=== PATIENT | female | born 1945 | race African-American/Black ===

== ENCOUNTER 2017-05-14 22:32 | Inpatient (IN) | payer OTHER, MEDICARE ==
--- NOTE | 2017-05-14 23:08 | PDOC ---
History of Present Illness - General History Source: Patient, Family Exam Limitations: No Limitations - History of Present Illness Initial Comments: 05/15/17 00:34 Patient is a 71 year old female with a significant past medical history of MS, and GERD, who presents to the ED with complaints of left knee and left shoulder pain, s/p fall that occured this morning at 3 am. Patient reports waking up this morning to use the restroom when she slipped and slid out of bed this morning landing on her knees. She reports rolling onto her buttock after being on her knees for several minutes, stating she was unable to get up herself. Patient reports calling paramedics using her life alert around am to assist her in getting up when she was unable to find assistance to be lifted off of the floor. Patient reports falling again this evening at 6pm, after voiding her bowels on her bed, causing her to slid onto the floor while trying to get to the restroom. She reports calling her son to help her off of the floor, prompting her son to bring the patient into the ED for further evaluation. She reports experiencing intermittent episodes of diarrhea. As per patient's daughter and aid, patient was noticeably confused during her episodes of falling. She reports patient was dizzy as well as speaking to individuals who she stated were not there. Patient reports taking laxative medication yesterday afternoon. Denies chest pain, Sob. Denies nausea, vomiting. Denies loss of consciousness, head trauma. Denies dysuria, hematuria.Denies contact with sick individuals, out of state travelling. Denies any other symptoms. Allergies: Codeine, Doxycycline. Penicillin. Social history: Lives with . No smoking. No alcohol. No illicit drugs. Surgical history: Hip replacement s/p 2005 PMD: Dr. Ld Mariscal. <Butch Pastor - Last Filed: 05/15/17 01:42> <Brittney Ignacio - Last Filed: 05/15/17 20:10> - General Chief Complaint: Injury Stated Complaint: FALL INJURY Time Seen by Provider: 05/14/17 22:57 Past History <Butch Pastor - Last Filed: 05/15/17 01:42> - Suicide/Smoking/Psychosocial Hx Smoking History: Never smoked <Brittney Ignacio - Last Filed: 05/15/17 20:10> - Past Medical History Allergies/Adverse Reactions: Allergies Allergy/AdvReac Type Severity Reaction Status Date / Time codeine Allergy Verified 05/14/17 22:48 doxycycline [From Vibramycin] Allergy Verified 05/14/17 22:48 Penicillins Allergy Verified 05/14/17 22:47 Home Medications: Ambulatory Orders Amlodipine Besylate [Norvasc -] 10 mg PO HS 05/15/17 Atorvastatin Ca [Lipitor] 10 mg PO HS 05/15/17 Baclofen 10 mg PO BID 05/15/17 Betaseron 0.3 mg SQ Q2D 05/15/17 Desloratadine/Pseudoephedrine [Clarinex-D 12 Hour Tablet] 5 mg PO BID PRN Furosemide [Lasix] 20 mg PO DAILY 05/15/17 Isosorbide Mononitrate [Isosorbide Mononitrate ER] 60 mg PO DAILY 05/15/17 Latanoprost 0.005% Eye Drops [Xalatan 0.005% Eye Drops -] 1 drop OD HS 05/15/17 Metoprolol Succinate [Toprol Xl] 150 mg PO DAILY 05/15/17 Montelukast Sodium [Singulair] 10 mg PO HS 05/15/17 Nexium 24Hr 40 mg PO DAILY 05/15/17 Review of Systems - Review of Systems Able to Perform ROS?: Yes Comments:: 05/15/17 00:34 GENERAL/CONSTITUTIONAL: No fever or chills. No weakness. HEAD, EYES, EARS, NOSE AND THROAT: No change in vision. No ear pain or discharge. No sore throat. CARDIOVASCULAR: No chest pain or shortness of breath. RESPIRATORY: No cough, wheezing, or hemoptysis. GASTROINTESTINAL: +Diarrhea. No nausea, vomiting, or constipation. GENITOURINARY: No dysuria, frequency, or change in urination. MUSCULOSKELETAL: +Bilateral hip pain. +Left knee pain. +Left shoulder pain. No joint or muscle swelling or pain. No neck or back pain. SKIN: No rash NEUROLOGIC: No headache, vertigo, loss of consciousness, or change in strength/ sensation. ENDOCRINE: No increased thirst. No abnormal weight change. HEMATOLOGIC/LYMPHATIC: No anemia, easy bleeding, or history of blood clots. ALLERGIC/IMMUNOLOGIC: No hives or skin allergy. <Butch Pastor - Last Filed: 05/15/17 01:42> *Physical Exam - Vital Signs Last Vital Signs Temp Pulse Resp BP Pulse Ox 98.3 F 73 16 158/76 100 05/14/17 22:35 05/14/17 22:35 05/14/17 22:35 05/14/17 22:35 05/14/17 22:35 - Physical Exam Comments: 05/15/17 00:34 GENERAL: Awake, alert, and fully oriented, in no acute distress HEAD: No signs of trauma EYES: PERRLA, EOMI, sclera anicteric, conjunctiva clear ENT: Auricles normal inspection, hearing grossly normal, nares patent, oropharynx clear without exudates. Moist mucosa NECK: Normal ROM, supple, no lymphadenopathy, JVD, or masses LUNGS: Breath sounds equal, clear to auscultation bilaterally. No wheezes, and no crackles HEART: Regular rate and rhythm, normal S1 and S2, no murmurs, rubs or gallops ABDOMEN: +Slightly gassy. Soft, nontender, normoactive bowel sounds. No guarding, no rebound. No masses EXTREMITIES: +Moving upper extremities. +Right hip pain. +Left hip pain. Normal range of motion, no edema. No clubbing or cyanosis. No cords, erythema, or tenderness NEUROLOGICAL: +Answering questions. Cranial nerves II through XII grossly intact. Normal speech, normal gait SKIN: Warm, Dry, normal turgor, no rashes or lesions noted. <Butch Pastor - Last Filed: 05/15/17 01:42> - Vital Signs Last Vital Signs Temp Pulse Resp BP Pulse Ox 98.3 F 73 16 158/76 100 05/14/17 22:35 05/14/17 22:35 05/14/17 22:35 05/14/17 22:35 05/14/17 22:35 <Brittney Ignacio - Last Filed: 05/15/17 20:10> Heart Score/ECG Review - ECG Intrepretation Comment:: 05/15/17 01:42 Completed @0:30:36 Normal Sinus rhythm Normal ECG Vent. rate 84 bpm SD interval 184 ms QRS duration 74 ms <Butch Pastor - Last Filed: 05/15/17 01:42> ED Treatment Course - LABORATORY CBC & Chemistry Diagram: 05/15/17 00:29 05/15/17 00:29 <Butch Pastor - Last Filed: 05/15/17 01:42> - LABORATORY CBC & Chemistry Diagram: 05/15/17 08:05 05/15/17 08:05 <Brittney Ignacio - Last Filed: 05/15/17 20:10> Medical Decision Making - Medical Decision Making 05/15/17 01:31 Pt fell at home 2 x today; she was altered MS at one point in the afternoon. Pt has rhabdomyolysis: CPK is 800+ Pt doesn't know why she fell, if she got dizzy or if she was weak. Pt has low potassium and she will be repleted in the hospital. Pt has had nothing to eat all day, only liquids. 05/15/17 04:23 Patient Name: MICA CANO THIS IS A PRELIMINARY REPORT FROM [facility] DATE OF SERVICE: 2017-05-15 03:17:35 IMAGES: 142 EXAM: HEAD CT WITHOUT CONTRAST HISTORY: Mental status changes COMPARISON: None. FINDINGS: The ventricular system is midline and nondilated. The sulcal pattern is normal for the patient's age. Mild small vessel ischemic changes are noted. There is no bleed, mass, extra-axial fluid collection or mass effect. No skull fracture. Benign hyperostosis frontalis internus is noted. Right maxillary sinus retention cyst or polyp is noted. The other visualized paranasal sinuses and mastoid air cells are clear. IMPRESSION: No evidence of acute pathology. 05/15/17 04:24 Pt admitted for multiple fall and hypokalemia. <Brittney Ignacio - Last Filed: 05/15/17 20:10> *DC/Admit/Observation/Transfer - Attestations Scribe Attestion: 05/15/17 00:35 Documentation prepared by Butch Pastor, acting as medical billing coder for Brittney Ignacio MD/DO. <Butch Pastor - Last Filed: 05/15/17 01:42> - Discharge Dispostion Admit: Yes <Brittney Ignacio - Last Filed: 05/15/17 20:10> Diagnosis at time of Disposition: Multiple falls, Rhabdomyolysis, Hypokalemia, Dehydration - Discharge Dispostion Condition at time of disposition: Guarded
[2017-05-14] MEDS ORDERED: SODIUM CHLORIDE 0.9% 500 ML INFUS.BAG IV ONE (23:51)
[2017-05-15 00:40] LABS: BASO % 0.7 % (0-2.0); EOS % 1.2 % (0-4.5); HEMATOCRIT 37.2 % (32.4-45.2); HEMOGLOBIN 12.5 GM/dL (10.7-15.3); LYMPH % 20.3 % (8-40); MCH 31.9 pg (25.7-33.7); MCHC 33.7 g/dl (32.0-36.0); MEAN CELL VOLUME 94.8 fl (80-96); MEAN PLT VOLUME 8.9 fl (7.5-11.1); MONO % 8.5 % (3.8-10.2); NEUT % 69.3 % (42.8-82.8); PLATELET COUNT 231 K/MM3 (134-434); RBC 3.92 M/mm3 (3.60-5.2); RDW 13.6 % (11.6-15.6); WHITE BLOOD COUNT 9.7 K/mm3 (4.0-10.0)
[2017-05-15 00:55] LABS: INR 1.04 (0.82-1.09); PROTHROMBIN TIME (PATIENT) 11.7 SEC (9.98-11.88)
[2017-05-15] MEDS ORDERED: KETOROLAC TROMETHAMINE 30 MG/1 ML VIAL IVPUSH ONE (01:05)
[2017-05-15] MEDS ORDERED: KETOROLAC TROMETHAMINE 30 MG/1 ML VIAL ONE (01:06)
[2017-05-15 01:23] LABS: ALBUMIN 3.3 g/dl (3.4-5.0); ALK PHOS 82 U/L (45-117); ANION GAP 11 (8-16); BILIRUBIN,TOTAL 0.7 mg/dL (0.2-1.0); BLOOD UREA NITROGEN 25 mg/dL (7-18); CALCIUM 9.2 mg/dL (8.5-10.1); CHLORIDE 109 mmol/L (98-107); CO2 26 mmol/L (21-32); GLUCOSE,RANDOM 80 mg/dL (74-106); SGOT/AST 40 U/L (15-37); SGPT/ALT 27 U/L (12-78); SODIUM 146 mmol/L (136-145); TOT PROT 7.2 g/dl (6.4-8.2)
[2017-05-15] MEDS ORDERED: MAGNESIUM SULF 50% (8.12 MEQ/2 ML-1 GM VIAL) IVPB ONE (01:30)
[2017-05-15] MEDS ORDERED: POTASSIUM CHLORIDE TABS 20 MEQ TABLET.ER (FP) PO ONE (01:31)
[2017-05-15] MEDS ORDERED: ACETAMINOPHEN 1000 MG/100 ML VIAL (NON FORMULARY) IVPB ONE (04:08)
[2017-05-15] MEDS ORDERED: ACETAMINOPHEN INJECTION 100 ML IVPB ONE (04:10)
[2017-05-15] MEDS ORDERED: MAGNESIUM SULF 50% (8.12 MEQ/2 ML-1 GM VIAL) ONE (04:10)
[2017-05-15] MEDS ORDERED: POTASSIUM CHLORIDE ORAL LIQUID 20 MEQ/15 ML ONE (04:11)
[2017-05-15 05:22] LABS: URINE APPEARANCE CLEAR; URINE BILIRUBIN NEGATIVE (NEGATIVE); URINE BLOOD 2+ (NEGATIVE); URINE COLOR LTYELLOW; URINE GLUCOSE (UA) NEGATIVE (NEGATIVE); URINE KETONE TRACE (NEGATIVE); URINE NITRITE NEGATIVE (NEGATIVE); URINE UROBILINOGEN NEGATIVE mg/dL (0.2-1.0)
[2017-05-15 05:26] LABS: URINE LEUK ESTERASE 1+ (NEGATIVE); URINE PROTEIN 2+ (NEGATIVE)
[2017-05-15 05:29] LABS: EPI CELLS RARE /HPF (FEW); URINE BACTERIA RARE /hpf (NONE SEEN); URINE HYALINE CAST 1 /lpf; URINE MUCUS RARE
[2017-05-15 06:07] VITALS: BMI 27.1
[2017-05-15] MEDS ORDERED: ACETAMINOPHEN 325 MG TABLET (FP) PO PRN (06:38)
--- NOTE | 2017-05-15 06:39 | HP ---
CHIEF COMPLAINT: mechanical fall x2, knee and hip pain PCP: Dr. Mariscal HISTORY OF PRESENT ILLNESS: 71yo F with PMH of MS and HTN who presents to ED after falling twice at home with complaints of bilateral knee and hip pain. She reports falling at 2AM Tuesday when getting ice. She fell on her knees. She fell again later in the afternoon, also falling on knees. She denies dizziness, lighthedness or shortness of breath. She endorses subjective warmth and malaise. Denies any chest pain, chest discomfort or palpitations. She received flu shot this year. Denies sick contacts. ER course was notable for: (1) Pelvic CT taken - awaiting results (2) Head CT taken - awaiting results (3) Hypokalemia - repleted with 80mEq (4) Received Mg 2gm IV Recent Travel: none PAST MEDICAL HISTORY: MS HTN GERD PAST SURGICAL HISTORY: R Hip replacement - 2005 Social History: Smoking: quit 2005, 20year pack-year history Alcohol: denies Drugs: denies Family History: non-contributory Allergies: codeine Allergy (Verified 05/14/17 22:48) doxycycline [From Vibramycin] Allergy (Verified 05/14/17 22:48) Penicillins Allergy (Verified 05/14/17 22:47) HOME MEDICATIONS: REVIEW OF SYSTEMS CONSTITUTIONAL: malaise Absent: fever, chills, diaphoresis, generalized weakness, malaise, loss of appetite, weight change HEENT: Absent: rhinorrhea, nasal congestion, throat pain, throat swelling, difficulty swallowing, mouth swelling, ear pain, eye pain, visual changes CARDIOVASCULAR: Absent: chest pain, syncope, palpitations, irregular heart rate, lightheadedness , peripheral edema RESPIRATORY: Absent: cough, shortness of breath, dyspnea with exertion, orthopnea, wheezing, stridor, hemoptysis GASTROINTESTINAL: Absent: abdominal pain, abdominal distension, nausea, vomiting, diarrhea, constipation, melena, hematochezia GENITOURINARY: Absent: dysuria, frequency, urgency, hesitancy, hematuria, flank pain, genital pain MUSCULOSKELETAL: hip and knee pain Absent: myalgia, arthralgia, joint swelling, back pain, neck pain SKIN: Absent: rash, itching, pallor HEMATOLOGIC/IMMUNOLOGIC: Absent: easy bleeding, easy bruising, lymphadenopathy, frequent infections ENDOCRINE: Absent: unexplained weight gain, unexplained weight loss, heat intolerance, cold intolerance NEUROLOGIC: Absent: headache, focal weakness or paresthesias, dizziness, unsteady gait, seizure, mental status changes, bladder or bowel incontinence PSYCHIATRIC: Absent: anxiety, depression, suicidal or homicidal ideation, hallucinations. PHYSICAL EXAMINATION Vital Signs - 24 hr 05/14/17 05/15/17 05/15/17 22:35 05:49 06:02 Temperature 98.3 F 99.0 F Pulse Rate 73 86 Respiratory 16 18 Rate Blood Pressure 158/76 168/70 O2 Sat by Pulse 100 96 Oximetry (%) GENERAL: lying in bed, aaox3 HEENT: PERRL, sceral anicteric, dry mucous membranes NECK: supple, no cervical LAD LUNGS: CTAB HEART: rrr, normal s1/s2, 3/6 ISRAEL ABDOMEN: Soft, NTND, no guarding or rebound MSK: LE ROM limited 2/2 to pain UPPER EXTREMITIES: No peripheral edema. LOWER EXTREMITIES: 2+ DP pulses, 1+ edema NEUROLOGICAL: seo team lead intact. facial symmetry, LE sensation intact, motor strength can not be assessed 2/2 to pain CBC, BMP 05/15/17 00:29 05/15/17 00:29 Hepatic Panel Total Bilirubin 0.7 mg/dL (0.2-1.0) 05/15/17 00:29 AST 40 U/L (15-37) H 05/15/17 00:29 ALT 27 U/L (12-78) 05/15/17 00:29 Alkaline Phosphatase 82 U/L (45-117) 05/15/17 00:29 Albumin 3.3 g/dl (3.4-5.0) L 05/15/17 00:29 Troponin, BNP 05/15/17 00:29 Troponin I 0.05 Urine Test Results Urine Color Ltyellow 05/15/17 05:14 Urine Appearance Clear 05/15/17 05:14 Urine pH 5.0 (5.0-8.0) 05/15/17 05:14 Ur Specific [place] 1.013 (1.001-1.035) 05/15/17 05:14 Urine Protein 2+ (NEGATIVE) H 05/15/17 05:14 Urine Glucose (UA) Negative (NEGATIVE) 05/15/17 05:14 Urine Ketones Trace (NEGATIVE) H 05/15/17 05:14 Urine Blood 2+ (NEGATIVE) H 05/15/17 05:14 Urine Nitrite Negative (NEGATIVE) 05/15/17 05:14 Urine Bilirubin Negative (NEGATIVE) 05/15/17 05:14 Ur Leukocyte Esterase 1+ (NEGATIVE) H 05/15/17 05:14 Ur Epithelial Cells Rare /HPF (FEW) 05/15/17 05:14 Urine Bacteria Rare /hpf (NONE SEEN) 05/15/17 05:14 Urine Mucus Rare 05/15/17 05:14 Active Medications Acetaminophen (Tylenol -) 650 mg PO Q6H PRN PRN Reason: PAIN OR FEVER Furosemide (Lasix -) 20 mg PO DAILY ALBERTO Sodium Chloride (1/2 Normal Saline) 1,000 mls @ 60 mls/hr IV ASDIR ALBERTO Isosorbide Mononitrate (Imdur -) 60 mg PO DAILY ALBERTO Oseltamivir Phosphate (Tamiflu -) 75 mg PO BID ALBERTO Stop: 05/20/17 09:59 ASSESSMENT/PLAN: 71yo F with PMH of MS and multiple mechanical falls at home who p/w bilateral hip and knee pain and found to be dehydrated and hypokalemic. #s/p mechanical fall -f/u head CT: preliminary read, no acute pathology -f/u pelvic CT --> if fracture, consult Ortho #malaise, r/o infectious process -f/u CXR -Flu swab stat -empiric treatment with Tamiflu 75mg PO BID -f/u urine culture #hypokalemia, repleted 80mEq -Monitor, and replete as needed #HTN -c/w home lasix 20mg PO QD -c/w home isosorbide 60mg PO QD #elevated Troponin (0.05), likely demand ischemia, low suspicion for ACS, pt is asx and EKG no signs of ischemia (NSR, rate 84) -Repeat, if no significant change, stop trending #FEN: 1/2NS@60cc / K and Mg repleted / Na controlled #DVT PPX: SCD's #DISPO: M/S d/w Dr. Lilly Sheehan MD PGY1 - Internal Medicine Visit type - Emergency Visit Emergency Visit: Yes ED Registration Date: 05/15/17 Care time: The patient presented to the Emergency Department on the above date and was hospitalized for further evaluation of their emergent condition. - New Patient This patient is new to me today: Yes Date on this admission: 05/15/17 - Critical Care Critical Care patient: No Hospitalist Screening - Colonoscopy Questionnaire Colonoscopy Questionnaire: Colonoscopy Questionnaire - Patient: 50 - 75 years old and never had a screening colonoscopy: Yes History of colon or rectal polyps, or CA: Unknown History of IBD, Crohn's disease or UC: Unknown History of abdominal radiation therapy as a child: Unknown - Relative: 1 with colon or rectal CA, or polyps at age 60 or younger: Unknown Colon or rectal CA diagnosed at age 45 or younger: Unknown Multiple relatives with colon or rectal CA: Unknown - Outcome: Screening Result: Positive Screen
--- NOTE | 2017-05-15 06:41 | PN ---
Teaching Attending Note ATTENDING PHYSICIAN STATEMENT I saw and evaluated the patient. I reviewed the resident's note and discussed the case with the resident. I agree with the resident's findings and plan as documented. SUBJECTIVE: patient presented with malaise and fall x2 that happened yesterday she was also complaining of feeling warm OBJECTIVE: s1 and s2 RRR grade 3 systolic ejection murmur at the 2nd intercostal border lungs CTA no bruises noted on the leg no tenderness on the left side where the patient fell abdomen soft non-tender ASSESSMENT AND PLAN: 75 y/o female admitted s/p trauma patient was noted to be febrile upon exam and dry and hypokalemic plan: malaise and fever r/o influenza obtain swab if positive place patient on isolation start Tamaflu IVF - 60cc/hr hypokalemia give 80 meq of potassium trauma - CT scan of the hip and head wear done to r/o any acute fracture and bleeding if there is hip fracture place patient as admission consult orthopedic surgery
[2017-05-15] MEDS ORDERED: SODIUM CHLORIDE 0.45% 1,000 ML IV SCH ×2 (06:45→07:36)
[2017-05-15 08:46] LABS: BASO % 0.5 % (0-2.0); EOS % 2.1 % (0-4.5); HEMATOCRIT 33.7 % (32.4-45.2); HEMOGLOBIN 11.4 GM/dL (10.7-15.3); LYMPH % 23.9 % (8-40); MCH 31.9 pg (25.7-33.7); MCHC 33.9 g/dl (32.0-36.0); MEAN PLT VOLUME 7.7 fl (7.5-11.1); NEUT % 65.5 % (42.8-82.8); PLATELET COUNT 178 K/MM3 (134-434); RBC 3.59 M/mm3 (3.60-5.2); RDW 13.5 % (11.6-15.6); WHITE BLOOD COUNT 6.6 K/mm3 (4.0-10.0)
--- NOTE | 2017-05-15 08:55 | PN ---
Teaching Attending Note Name of Resident: Sergio Mccormick SUBJECTIVE: patient seen and examined, feels better, confirms both falls at home as mechanical, first time landed on her knees, second time rolled out of bed on her knees than stayed on the floor till help arrived. reports some right groin pain and left knee pain. Also has chronic low back pain with no recent changes. had some chills at home but no fevers, respiratory symptoms, abdominal or urinary concerns. Currently feels better, pain well controlled. OBJECTIVE: Vital Signs Period Temp Pulse Resp BP Sys/Mcnulty Pulse Ox Last 24 Hr 98.3 F-99.0 F 73-86 16-18 158-168/70-76 96-100 Intake & Output 05/12/17 05/13/17 05/14/17 05/15/17 23:59 23:59 23:59 23:59 Weight 150 lb 159 lb 1.6 oz General: lying in bed in no acute distress chest: CTAB, no rales or wheezing CVS:S1S2 regular Abdomen:soft obese, NT, positive bowel sounds extremities: no edema, minimal limitation of Left knee ROM from pain, no obvious swelling or hematoma noted, Right groin pain with RLE movements but minimal limitation in ROM, no groin tenderness, Musculoskeletal: no spinal tenderness noted. Home Medication List Medication Instructions Recorded Confirmed Type Furosemide [Lasix] 20 mg PO DAILY 05/15/17 05/15/17 History Isosorbide Mononitrate [Isosorbide 60 mg PO DAILY 05/15/17 05/15/17 History Mononitrate ER] Active Medications Generic Name Dose Route Start Last Admin Trade Name Freq PRN Reason Stop Dose Admin Acetaminophen 650 mg 05/15/17 06:38 Tylenol - PO Q6H PRN PAIN OR FEVER Isosorbide Mononitrate 60 mg 05/15/17 10:00 Imdur - PO DAILY ALBERTO Oseltamivir Phosphate 75 mg 05/15/17 10:00 Tamiflu - PO 05/20/17 09:59 BID ALBERTO Laboratory Results - last 24 hr 05/15/17 05/15/17 05/15/17 00:29 00:29 00:29 WBC 9.7 RBC 3.92 Hgb 12.5 Hct 37.2 MCV 94.8 MCH 31.9 MCHC 33.7 RDW 13.6 Plt Count 231 MPV 8.9 Neutrophils % 69.3 Lymphocytes % 20.3 Monocytes % 8.5 Eosinophils % 1.2 Basophils % 0.7 Platelet Comment No clumping noted PT with INR 11.70 INR 1.04 Sodium Potassium Chloride Carbon Dioxide Anion Gap BUN Creatinine Creat Clearance w eGFR Random Glucose Calcium Total Bilirubin AST ALT Alkaline Phosphatase Creatine Kinase 830 H Creatine Kinase Index 1.6 CK-MB (CK-2) 13.862 H Troponin I 0.05 Total Protein Albumin Urine Color Urine Appearance Urine pH Ur Specific [place] Urine Protein Urine Glucose (UA) Urine Ketones Urine Blood Urine Nitrite Urine Bilirubin Urine Urobilinogen Ur Leukocyte Esterase Urine WBC (Auto) Urine RBC (Auto) Ur Epithelial Cells Urine Bacteria Hyaline Casts Urine Mucus 05/15/17 05/15/17 05/15/17 00:29 05:14 08:05 WBC 6.6 D RBC 3.59 L Hgb 11.4 Hct 33.7 MCV 94.0 MCH 31.9 MCHC 33.9 RDW 13.5 Plt Count 178 D MPV 7.7 D Neutrophils % 65.5 Lymphocytes % 23.9 Monocytes % 8.0 Eosinophils % 2.1 Basophils % 0.5 Platelet Comment PT with INR INR Sodium 146 H Potassium 3.0 L Chloride 109 H Carbon Dioxide 26 Anion Gap 11 BUN 25 H Creatinine 1.0 Creat Clearance w eGFR 54.50 Random Glucose 80 Calcium 9.2 Total Bilirubin 0.7 AST 40 H ALT 27 Alkaline Phosphatase 82 Creatine Kinase Creatine Kinase Index CK-MB (CK-2) Troponin I Total Protein 7.2 Albumin 3.3 L Urine Color Ltyellow Urine Appearance Clear Urine pH 5.0 Ur Specific [place] 1.013 Urine Protein 2+ H Urine Glucose (UA) Negative Urine Ketones Trace H Urine Blood 2+ H Urine Nitrite Negative Urine Bilirubin Negative Urine Urobilinogen Negative Ur Leukocyte Esterase 1+ H Urine WBC (Auto) 14 Urine RBC (Auto) 2 Ur Epithelial Cells Rare Urine Bacteria Rare Hyaline Casts [address] head - neg for acute process CT pelvis )Night hawk read), no acute fracture or hematoma, right hip replacement ASSESSMENT AND PLAN: 71 yof with MS (since 1970s, with some left arm symptoms), HTN, ?brain aneursym , here with recurrent falls. _recurrent falls -Right groin/left knee pain -Rhabdomyolysis, from lying on floor -Hypokalemia -Hypernatremia -HTN -?brain aneurysm Plan: CT pelvis prelim read neg for fracture, with right hip replacement but no hardware displacement, follow up official read. Left knee xray though low suspicion. Fall precautions, tylenol prn. PT eval. gentle hydration, trend CPK replete K. ?h/o brain aneurysm, hold off pharmacological DVTPPx unless non ambulatory > 4 8 hours. Retrieve more info Continue home Nitrates. Hold lasix for now. Dispo - pending clinical course, and PT eval. ?SNF vs home with services.
[2017-05-15] MEDS ORDERED: SODIUM CHLORIDE 0.45%/POT 20 MEQ/1,000 ML INFUS.BAG IV SCH (09:00)
[2017-05-15 09:13] LABS: ALBUMIN 2.8 g/dl (3.4-5.0); ANION GAP 9 (8-16); BILIRUBIN,TOTAL 0.8 mg/dL (0.2-1.0); BLOOD UREA NITROGEN 19 mg/dL (7-18); CALCIUM 8.7 mg/dL (8.5-10.1); CHLORIDE 112 mmol/L (98-107); CO2 25 mmol/L (21-32); CREATININE 0.8 mg/dL (0.55-1.02); GLUCOSE,RANDOM 70 mg/dL (74-106); POTASSIUM 3.1 mmol/L (3.5-5.1); SGOT/AST 35 U/L (15-37); SGPT/ALT 23 U/L (12-78); SODIUM 146 mmol/L (136-145); TOT PROT 6.3 g/dl (6.4-8.2)
[2017-05-15 09:16] LABS: ALK PHOS 73 U/L (45-117)
[2017-05-15] MEDS ORDERED: FUROSEMIDE 20 MG TABLET (FP) PO SCH (10:00)
[2017-05-15] MEDS: OSELTAMIVIR PHOSPHATE 75 MG CAPSULE PO SCH ×2 (11:41→21:54)
[2017-05-15] MEDS: ISOSORBIDE MONONITRATE 60 MG TAB.SR.24H (FP) PO SCH (11:41)
[2017-05-15] MEDS: POTASSIUM CHLORIDE 20 MEQ in SODIUM CHLORIDE 0.45% 1,000 ML IVPB SCH (13:50)
[2017-05-15] MEDS: POTASSIUM CHLORIDE ORAL LIQUID 20 MEQ/15 ML PO SCH ×2 (14:00→21:55)
[2017-05-15] MEDS: ATORVASTATIN CA 10 MG TABLET (FP) PO SCH (21:54)
[2017-05-15] MEDS: MONTELUKAST NA 10 MG TABLET PO SCH (21:54)
[2017-05-15] MEDS: LATANOPROST 0.005% OPHTH SOLN 2.5ML BOTTLE OD SCH (21:54)
[2017-05-15] MEDS: amLODIPine BESYLATE 10 MG TABLET (FP) PO SCH (21:54)
--- NOTE | 2017-05-15 23:57 | EKG ---
Test Reason : Blood Pressure : / mmHG Vent. Rate : 084 BPM Atrial Rate : 084 BPM P-R Int : 184 ms QRS Dur : 074 ms QT Int : 368 ms P-R-T Axes : 078 010 032 degrees QTc Int : 434 ms POOR DATA QUALITY, INTERPRETATION MAY BE ADVERSELY AFFECTED NORMAL SINUS RHYTHM NORMAL ECG NO PREVIOUS ECGS AVAILABLE Confirmed by VITA COON MD ([id number]) on 05/15/2017 11:57:22 PM Referred By: Confirmed By:VITA COON MD
[2017-05-16] MEDS: POTASSIUM CHLORIDE 20 MEQ in SODIUM CHLORIDE 0.45% 1,000 ML IVPB SCH (05:59)
[2017-05-16 07:26] LABS: CHLORIDE 110 mmol/L (98-107); POTASSIUM 4.5 mmol/L (3.5-5.1); SODIUM 144 mmol/L (136-145)
[2017-05-16 07:52] LABS: ANION GAP 11 (8-16); BLOOD UREA NITROGEN 16 mg/dL (7-18); CALCIUM 8.9 mg/dL (8.5-10.1); CO2 23 mmol/L (21-32); CREATININE 0.8 mg/dL (0.55-1.02); GLUCOSE,RANDOM 84 mg/dL (74-106); MAGNESIUM 2.5 mg/dL (1.8-2.4); PHOSPHOROUS 2.4 mg/dL (2.5-4.9)
[2017-05-16 08:05] LABS: HEMATOCRIT 34.1 % (32.4-45.2); HEMOGLOBIN 11.6 GM/dL (10.7-15.3); MCH 32.3 pg (25.7-33.7); MCHC 33.9 g/dl (32.0-36.0); MEAN CELL VOLUME 95.2 fl (80-96); MEAN PLT VOLUME 7.9 fl (7.5-11.1); PLATELET COUNT 178 K/MM3 (134-434); RBC 3.58 M/mm3 (3.60-5.2); RDW 13.5 % (11.6-15.6); WHITE BLOOD COUNT 7.2 K/mm3 (4.0-10.0)
--- NOTE | 2017-05-16 08:44 | PN ---
Physical Exam: SUBJECTIVE: Patient seen and examined. No events overnight. Continues to have L shoulder pain and bilateral hip pain that is worse with movement. Denies fever, chills, n/v, chest pain, or sob. OBJECTIVE: Vital Signs Period Temp Pulse Resp BP Sys/Mcnulty Pulse Ox Last 24 Hr 97.6 F-99.9 F 89-103 18-20 138-189/73-94 96-97 Intake & Output 05/13/17 05/14/17 05/15/17 05/16/17 23:59 23:59 23:59 23:59 Intake Total 838 1061 Balance 838 1061 Weight 68.039 kg 72.167 kg GENERAL: lying in bed, aaox3, nad HEENT: sclera anicteric, conjunctiva clear, MMM LUNGS: CTAB HEART: rrr, normal s1/s2, 3/6 ISRAEL ABDOMEN: soft, NTND, + bowel sounds, no guarding or rebound LOWER EXTREMITIES: 2+ DP pulses, wwp, no edema NEUROLOGICAL: Cranial nerves II through XII grossly intact. Normal speech, gait not observed. CBC, BMP 05/16/17 05:35 05/16/17 05:35 Ca - 8.9 Phos - 2.4 Mg - 2.5 Hepatic Panel Total Bilirubin 0.8 mg/dL (0.2-1.0) 05/15/17 08:05 AST 35 U/L (15-37) 05/15/17 08:05 ALT 23 U/L (12-78) 05/15/17 08:05 Alkaline Phosphatase 73 U/L (45-117) 05/15/17 08:05 Albumin 2.8 g/dl (3.4-5.0) L 05/15/17 08:05 Microbiology 05/15/17 05:14 Urine - Urine Clean Catch Urine Culture - Final Contaminated: Please Repeat 05/15/17 08:15 Nasopharyngeal Swab Influenza Types A,B Antigen (GALINA) - Final 05/15/17 08:15 Nasopharyngeal Swab - Final CT pelvis/Brain non concerning. Left shoulder with ?posterior dislocation of humeral head, unclear if new, orthopedic consult with Dr. Clarke, NWB LUE till then. Place on standing tylenol. PT eval pending ortho input. CPK improved. D/c IVF. ?h/o brain aneurysm, hold off pharmacological DVTPPx unless non ambulatory > 48 hours. Retrieve more info as needed. Continue home Nitrates. Hold lasix for now. Dispo - pending corthopedic input and PT eval, anticipate SNF. Plan discussed with patient in detail, all questions answered. Active Medications Acetaminophen (Tylenol -) 975 mg PO TID [facility] Last Admin: 05/16/17 22:06 Dose: 975 mg Amlodipine Besylate (Norvasc -) 10 mg PO HS [facility] Last Admin: 05/16/17 22:06 Dose: 10 mg Atorvastatin Calcium (Lipitor -) 10 mg PO HS [facility] Last Admin: 05/16/17 22:06 Dose: 10 mg Isosorbide Mononitrate (Imdur -) 60 mg PO DAILY [facility] Last Admin: 05/16/17 10:24 Dose: 60 mg Latanoprost (Xalatan 0.005% Eye Drops -) 1 drop OD [facility] Last Admin: 05/16/17 22:07 Dose: 1 drop Metoprolol Succinate (Toprol Xl -) 150 mg PO DAILY [facility] Last Admin: 05/16/17 10:24 Dose: 150 mg Montelukast Sodium (Singulair -) 10 mg PO HS [facility] Last Admin: 05/16/17 22:06 Dose: 10 mg Pnt's Own Med ( (Betaseron 0.3 Mg)) 0.3 mg SQ Q2D [facility] Pantoprazole Sodium (Protonix -) 40 mg PO DAILY [facility] Last Admin: 05/16/17 10:23 Dose: 40 mg ASSESSMENT/PLAN: 71yo F with PMH of MS, cerebral AVMs (stable per PCP Dr. Mariscal) and multiple mechanical falls at home who p/w bilateral hip and knee pain and found to be dehydrated and hypokalemic. #s/p mechanical fall -head and pelvis CT: no acute pathology, non-concerning -L shoulder xray --> possible posterior dislocation, will consult Ortho (Dr. Clarke) #malaise, r/o infectious process -f/u CXR -Flu swab - -empiric treatment with Tamiflu 75mg PO BID -f/u urine culture #hypokalemia, repleted 80mEq, resolved #HTN -Hod lasix 20mg PO QD -c/w home isosorbide 60mg PO QD #elevated Troponin (0.05), likely demand ischemia, low suspicion for ACS, pt is asx and EKG no signs of ischemia (NSR, rate 84) -Repeat, if no significant change, stop trending #FEN: PO fluids / lytes wnl / Na controlled #DVT PPX: SCD's #PT eval #DISPO: M/S d/w Dr. Jace Sheehan MD PGY1 - Internal Medicine Visit type - Emergency Visit Emergency Visit: No - New Patient This patient is new to me today: No - Critical Care Critical Care patient: No
--- NOTE | 2017-05-16 08:54 | PN ---
Teaching Attending Note Name of Resident: Donya Sheehan ATTENDING PHYSICIAN STATEMENT I saw and evaluated the patient. I reviewed the resident's note and discussed the case with the resident. I agree with the resident's findings and plan as documented with exceptions below. SUBJECTIVE: patient seen and examined, still with left shoulder pain and left knee pain. Also reports some bilateral groin/hip pain with activity but able to ambulate. OBJECTIVE: Vital Signs Period Temp Pulse Resp BP Sys/Mcnulty Pulse Ox Last 24 Hr 97.6 F-99.9 F 89-103 18-20 138-189/73-94 96-97 Intake & Output 05/13/17 05/14/17 05/15/17 05/16/17 23:59 23:59 23:59 23:59 Intake Total 838 581 Balance 838 581 Weight 150 lb 159 lb 1.6 oz General: lying in bed in no acute distress Extremities: Limitation of ROM in Left shoulder, but no obvious swelling/ erythema or deformity noted, Left knee exam with mild limitation from pain, unchanged pelvic exam Chest: CTA, no rales or wheezing Abdomen: soft, NT Home Medication List Medication Instructions Recorded Confirmed Type Amlodipine Besylate [Norvasc -] 10 mg PO HS 05/15/17 05/15/17 History Atorvastatin Ca [Lipitor] 10 mg PO HS 05/15/17 05/15/17 History Baclofen 10 mg PO BID 05/15/17 05/15/17 History Betaseron 0.3 mg SQ Q2D 05/15/17 05/15/17 History Desloratadine/Pseudoephedrine 5 mg PO BID PRN 05/15/17 05/15/17 History [Clarinex-D 12 Hour Tablet] Furosemide [Lasix] 20 mg PO DAILY 05/15/17 05/15/17 History Isosorbide Mononitrate [Isosorbide 60 mg PO DAILY 05/15/17 05/15/17 History Mononitrate ER] Latanoprost 0.005% Eye Drops 1 drop OD HS 05/15/17 05/15/17 History [Xalatan 0.005% Eye Drops -] Metoprolol Succinate [Toprol Xl] 150 mg PO DAILY 05/15/17 05/15/17 History Montelukast Sodium [Singulair] 10 mg PO HS 05/15/17 05/15/17 History Nexium 24Hr 40 mg PO DAILY 05/15/17 05/15/17 History Active Medications Generic Name Dose Route Start Last Admin Trade Name Mely PRN Reason Stop Dose Admin Acetaminophen 650 mg 05/15/17 06:38 05/15/17 13:59 Tylenol - PO 650 mg Q6H PRN Administration PAIN OR FEVER Amlodipine Besylate 10 mg 05/15/17 22:00 05/15/17 21:54 Norvasc - PO 10 mg HS ALBERTO Administration Atorvastatin Calcium 10 mg 05/15/17 22:00 05/15/17 21:54 Lipitor - PO 10 mg HS ALBERTO Administration Potassium Chloride 20 meq/ 1,010 mls @ 83 mls/hr 05/15/17 11:50 05/16/17 05: 59 Sodium Chloride IVPB 83 mls/hr Q12H ALBERTO Administration Isosorbide Mononitrate 60 mg 05/15/17 10:00 05/15/17 11:41 Imdur - PO 60 mg DAILY ALBERTO Administration Latanoprost 1 drop 05/15/17 22:00 05/15/17 21:54 Xalatan 0.005% Eye Drops - OD 1 drop HS ALBERTO Administration Metoprolol Succinate 150 mg 05/16/17 10:00 Toprol Xl - PO DAILY ALBERTO Montelukast Sodium 10 mg 05/15/17 22:00 05/15/17 21:54 Singulair - PO 10 mg HS ALBERTO Administration Pnt's Own Med ( 0.3 mg 05/17/17 10:00 Betaseron 0.3 Mg) SQ Q2D ALBERTO Pantoprazole Sodium 40 mg 05/16/17 10:00 Protonix - PO DAILY [facility] Laboratory Results - last 24 hr 05/15/17 05/16/17 05/16/17 08:05 05:35 05:35 WBC 7.2 RBC 3.58 L Hgb 11.6 Hct 34.1 MCV 95.2 MCH 32.3 MCHC 33.9 RDW 13.5 Plt Count 178 MPV 7.9 Sodium 146 H 144 Potassium 3.1 L 4.5 Chloride 112 H 110 H Carbon Dioxide 25 23 Anion Gap 9 11 BUN 19 H 16 Creatinine 0.8 0.8 Creat Clearance w eGFR > 60 Random Glucose 70 L 84 Calcium 8.7 8.9 Phosphorus 2.4 L Magnesium 2.5 H Total Bilirubin 0.8 AST 35 ALT 23 Alkaline Phosphatase 73 Creatine Kinase 696 H 512 H Creatine Kinase Index 1.2 0.6 CK-MB (CK-2) 8.684 H 3.504 Troponin I 0.06 H Total Protein 6.3 L Albumin 2.8 L Microbiology 05/15/17 08:15 Nasopharyngeal Swab Influenza Types A,B Antigen (GALINA) - Final 05/15/17 08:15 Nasopharyngeal Swab - Final CT pelvis results reviewed Left knee xray noted Left shoulder xray: ?posterior dislocation of left humeral head ASSESSMENT AND PLAN: 71 yof with MS (since 1970s, with some left arm symptoms), HTN, ?brain aneursym , here with recurrent falls. _recurrent falls -Right groin/left knee pain -Left shoulder pain, ?posterior dislocation of left humeral head -Rhabdomyolysis, from lying on floor -Hypokalemia -Hypernatremia -HTN -?brain aneurysm Plan: CT pelvis/Brain non concerning. Left shoulder with ?posterior dislocation of humeral head, unclear if new, orthopedic consult with Dr. Clarke, [facility] till then. Place on standing tylenol. PT eval pending ortho input. CPK improved. D/c IVF. ?h/o brain aneurysm, hold off pharmacological DVTPPx unless non ambulatory > 48 hours. Retrieve more info as needed. Continue home Nitrates. Hold lasix for now. Dispo - pending corthopedic input and PT eval, anticipate SNF. Plan discussed with patient in detail, all questions answered.
[2017-05-16] MEDS ORDERED: PT OWN MED DRAWER 7, Y5N ONE ×2 (10:19→15:35)
[2017-05-16] MEDS: PANTOPRAZOLE 40 MG TABLET (FP) PO SCH (10:23)
[2017-05-16] MEDS: ISOSORBIDE MONONITRATE 60 MG TAB.SR.24H (FP) PO SCH (10:24)
[2017-05-16] MEDS: ACETAMINOPHEN 325 MG TABLET (FP) PO SCH ×2 (13:05→22:06)
[2017-05-16] MEDS: ATORVASTATIN CA 10 MG TABLET (FP) PO SCH (22:06)
[2017-05-16] MEDS: amLODIPine BESYLATE 10 MG TABLET (FP) PO SCH (22:06)
[2017-05-16] MEDS: MONTELUKAST NA 10 MG TABLET PO SCH (22:06)
[2017-05-16] MEDS: LATANOPROST 0.005% OPHTH SOLN 2.5ML BOTTLE OD SCH (22:07)
[2017-05-17] MEDS: ACETAMINOPHEN 325 MG TABLET (FP) PO SCH ×3 (06:55→22:41)
[2017-05-17 07:42] LABS: ALBUMIN 3.1 g/dl (3.4-5.0); ANION GAP 9 (8-16); BLOOD UREA NITROGEN 13 mg/dL (7-18); CALCIUM 9.1 mg/dL (8.5-10.1); CHLORIDE 108 mmol/L (98-107); CO2 27 mmol/L (21-32); CREATININE 0.7 mg/dL (0.55-1.02); GLUCOSE,RANDOM 83 mg/dL (74-106); SGOT/AST 24 U/L (15-37); SGPT/ALT 27 U/L (12-78); SODIUM 144 mmol/L (136-145); TOT PROT 6.8 g/dl (6.4-8.2)
[2017-05-17 07:44] LABS: ALK PHOS 80 U/L (45-117); BILIRUBIN,TOTAL 0.6 mg/dL (0.2-1.0)
[2017-05-17 07:54] LABS: HEMATOCRIT 37.1 % (32.4-45.2); HEMOGLOBIN 12.4 GM/dL (10.7-15.3); MCH 31.7 pg (25.7-33.7); MCHC 33.5 g/dl (32.0-36.0); MEAN CELL VOLUME 94.6 fl (80-96); MEAN PLT VOLUME 7.8 fl (7.5-11.1); PLATELET COUNT 188 K/MM3 (134-434); RBC 3.92 M/mm3 (3.60-5.2); RDW 13.4 % (11.6-15.6); WHITE BLOOD COUNT 6.1 K/mm3 (4.0-10.0)
[2017-05-17] MEDS ORDERED: DOCUSATE SODIUM 100 MG CAPSULE (FP) PO PRN (09:05)
--- NOTE | 2017-05-17 09:40 | CONS ---
DATE OF CONSULTATION: 05/16/2017 CHIEF COMPLAINT: Left shoulder, left knee, left hip pain. HISTORY OF PRESENT ILLNESS: This is a pleasant 71-year-old female with a history of MS, who fell twice at home. Initially, both sides were hurting her. However, now, her left side is hurting her only. She has been admitted for difficulty ambulating. She does have a history of right total hip which she states has never been good since it was done. She denies any radiating pain, numbness, or tingling. PAST MEDICAL HISTORY: Significant for multiple sclerosis, hypertension, GERD. PAST SURGICAL HISTORY: Significant for right total hip replacement. SOCIAL HISTORY: No current tobacco, alcohol, or drugs. She does have a distant smoking history. FAMILY HISTORY: Noncontributory. REVIEW OF SYMPTOMS: Negative for any fever, chills, nausea, vomiting, or night sweats. ALLERGIES: Include CODEINE, DOXYCYCLINE, and PENICILLIN. PHYSICAL EXAMINATION: General: This is a well-appearing female in no acute distress. She is alert and oriented x3. She is seen lying in her hospital bed. Vital Signs: She is afebrile, and vital signs are stable. Left Upper Extremity: Demonstrates no skin lesions. There is no swelling. There is no tenderness about the shoulder, elbow, or wrist. She has forward flexion comfortably to 100 degrees. She has positive impingement signs. She has slight weakness in the rotator cuff. Her distal neurovascular exam is intact. Left Hip: Demonstrates significant limitation in rotation. She has no pain upon gentle flexion and extension. She does have pain with rotation. Examination of the knee demonstrates no effusion. There is moderate limitation to motion. She is tender over the medial aspect of the joint. There is no effusion. There is good stability with discomfort on MCL testing. Distally, sensation is intact to light touch. DP pulse 2+. Intact EHL and FHL, intact sensation to light touch. Radiographs reviewed, demonstrating mild degenerative change to the left shoulder. There are no fractures. There is severe osteoarthritis of the left hip. There is mild osteoarthritis to the left knee with no acute trauma seen. ASSESSMENT: Left shoulder and knee sprains as well as contusions, left hip osteoarthritis. PLAN: I reviewed today's findings with the patient and her family. I reviewed that there is no evidence of any acute fractures. I do believe she has some sprains and strains which should improve themselves as far as her knee and her shoulder go. We did discuss she has significant osteoarthritis of the left hip. At this point, I am recommending a course of physical therapy. She may weightbear as tolerated with use of an assistive device. She can follow up as an outpatient. If her knee is not improving, we could consider an MRI. KENIA FARRELL M.D. RANDI/[id number]
[2017-05-17] MEDS ORDERED: [UNRECOGNIZED DRUG - OTHER] SQ SCH (10:00)
[2017-05-17] MEDS: PANTOPRAZOLE 40 MG TABLET (FP) PO SCH (10:49)
[2017-05-17] MEDS: BACLOFEN 10 MG TABLET (FP) PO SCH ×2 (11:47→22:40)
[2017-05-17] MEDS: ISOSORBIDE MONONITRATE 30 MG TAB.SR.24H (FP) PO SCH (11:47)
[2017-05-17] MEDS: ISOSORBIDE MONONITRATE 60 MG TAB.SR.24H (FP) PO SCH (11:48)
[2017-05-17] MEDS ORDERED: NAPH,MB-DB/K PH,MBDB POWDER PACKET PO ONE (14:51)
--- NOTE | 2017-05-17 14:53 | PN ---
Teaching Attending Note Name of Resident: Donya Sheehan ATTENDING PHYSICIAN STATEMENT I saw and evaluated the patient. I reviewed the resident's note and discussed the case with the resident. I agree with the resident's findings and plan as documented. SUBJECTIVE:c/o back muscle spasms. been on flexeril for over 30 years. states pain is controlled when not moving but unable to move due to the pain. denies CP , SOB, fever, chills, N/V/C/D OBJECTIVE: Last Vital Signs Temp Pulse Resp BP Pulse Ox 98.2 F 84 20 158/81 97 05/17/17 06:00 05/17/17 11:05 05/17/17 11:05 05/17/17 11:05 05/16/17 21:00 General NAD CV S1 S2 RRR Lungs CTA B/L no wheezing/rales/rhonchi Extremities RUE limited passive ROM due to pain, LUE +bone point tenderness over the acromium unable to abduct >30degrees due to pain ASSESSMENT AND PLAN: 71 yo F with MS (since 1970s, with some left arm symptoms), HTN, ?brain aneursym , here with recurrent falls. 1. Mechanical fall- reports multiple falls due to genernalzed weakness. agreeable to [facility] placement.pelvic/knee XR negative for acute fx. re-start muscle relaxer. optoimize pain control 2. L shoulder pain- ?posterior dislocation of L humeral head. unclear if still dislocated as able to move arms somewhat. awaiting ortho eval. may need arm rest. ice and pain control 3. Rhabdo- resolved. d/c IVF 4. hypophospahatemia- neutraphos 5. Hypokalemia-resolved 6. Hypernatremia-resolved 7. Brain aneurysm 8. HTN- uncontrolled. likely pain related. will optimize pain control and remains uncontrolled will consider adjusting management 9. DVT ppx- DVT ppx-start hep sq 10. ambulating 4 ft with PT. agreeable to [facility]. SIDNEY sent by CM. medically optimized for discharge to [facility].
[2017-05-17] MEDS ORDERED: ACETAMINOPHEN 325 MG TABLET (FP) PO ONE (17:52)
--- NOTE | 2017-05-17 17:54 | PN ---
Physical Exam: SUBJECTIVE: Patient seen and examined. No events overnight. Joint pain (knees, hips, shoulders), slightly improved today. No fever, chills, n/v, chest pain, or abdominal pain. OBJECTIVE: Vital Signs Period Temp Pulse Resp BP Sys/Mcnulty Pulse Ox Last 24 Hr 97.9 F-99 F 84-90 20-20 110-158/69-82 97-98 GENERAL: lying in bed, aaox3, nad HEENT: sclera anicteric, conjunctiva clear, MMM LUNGS: CTAB HEART: rrr, normal s1/s2, 3/6 ISRAEL ABDOMEN: soft, NTND, + bowel sounds, no guarding or rebound LOWER EXTREMITIES: 2+ DP pulses, wwp, no edema NEUROLOGICAL: Cranial nerves II through XII grossly intact. Normal speech, gait not observed. CBC, BMP 05/17/17 05:30 05/17/17 05:30 Hepatic Panel Total Bilirubin 0.6 mg/dL (0.2-1.0) D 05/17/17 05:30 AST 24 U/L (15-37) 05/17/17 05:30 ALT 27 U/L (12-78) 05/17/17 05:30 Alkaline Phosphatase 80 U/L (45-117) 05/17/17 05:30 Albumin 3.1 g/dl (3.4-5.0) L 05/17/17 05:30 Active Medications Acetaminophen (Tylenol -) 975 mg PO TID [facility] Last Admin: 05/17/17 14:49 Dose: 975 mg Amlodipine Besylate (Norvasc -) 10 mg PO HS [facility] Last Admin: 05/16/17 22:06 Dose: 10 mg Atorvastatin Calcium (Lipitor -) 10 mg PO HS [facility] Last Admin: 05/16/17 22:06 Dose: 10 mg Baclofen (Lioresal -) 10 mg PO BID [facility] Last Admin: 05/17/17 11:47 Dose: 10 mg Docusate Sodium (Colace -) 100 mg PO BID PRN PRN Reason: CONSTIPATION Last Admin: 05/17/17 10:49 Dose: 100 mg Heparin Sodium (Porcine) (Heparin -) 5,000 unit SQ BID [facility] Isosorbide Mononitrate (Imdur -) 90 mg PO DAILY [facility] Last Admin: 03/20/18 11:47 Dose: 90 mg Latanoprost (Xalatan 0.005% Eye Drops -) 1 drop OD HS [facility] Last Admin: 05/16/17 22:07 Dose: 1 drop Metoprolol Succinate (Toprol Xl -) 150 mg PO DAILY [facility] Last Admin: 05/17/17 10:49 Dose: 150 mg Montelukast Sodium (Singulair -) 10 mg PO HS [facility] Last Admin: 05/16/17 22:06 Dose: 10 mg Pnt's Own Med ( (Betaseron 0.3 Mg)) 0.3 mg SQ Q2D [facility] Last Admin: 05/17/17 10:50 Dose: 0.3 mg Pantoprazole Sodium (Protonix -) 40 mg PO DAILY [facility] Last Admin: 05/17/17 10:49 Dose: 40 mg ASSESSMENT/PLAN: 71yo F with PMH of MS, cerebral AVMs (stable per PCP Dr. Mariscal) and multiple mechanical falls at home who p/w bilateral hip and knee pain and found to be dehydrated and hypokalemic. #s/p mechanical fall -head and pelvis CT: no acute pathology, non-concerning -L shoulder xray --> possible posterior dislocation; Ortho consult: recommends physical therapy treatment #HTN, not well controlled -Hod lasix 20mg PO QD -increase isosorbide to 90mg PO QD #chronic back pain/muscle spasms -start Baclofen 10mg PO BID -Tylenol 975mg PO TID #elevated Troponin (0.05), likely demand ischemia, low suspicion for ACS, pt is asx and EKG no signs of ischemia (NSR, rate 84) -stop trending #FEN: PO fluids / lytes wnl / Na controlled #DVT PPX: Heparin 5000U SQ BID #PT eval: ambulated 4ft today #DISPO: M/S, pt will need SNF, which patient ameniable to; SIDNEY sent d/w Dr. Elizabeth Sheehan MD PGY1 - Internal Medicine Visit type - Emergency Visit Emergency Visit: No - New Patient This patient is new to me today: No - Critical Care Critical Care patient: No
[2017-05-17] MEDS: ATORVASTATIN CA 10 MG TABLET (FP) PO SCH (22:00)
[2017-05-17] MEDS: MONTELUKAST NA 10 MG TABLET PO SCH (22:40)
[2017-05-17] MEDS: amLODIPine BESYLATE 10 MG TABLET (FP) PO SCH (22:40)
[2017-05-17] MEDS: LATANOPROST 0.005% OPHTH SOLN 2.5ML BOTTLE OD SCH (22:41)
[2017-05-17] MEDS: HEPARIN NA (PORCINE) 5,000 UNITS/ML 1ML VIAL SQ SCH (22:41)
[2017-05-18] MEDS: ACETAMINOPHEN 325 MG TABLET (FP) PO SCH (06:40)
[2017-05-18 08:55] LABS: HEMOGLOBIN 12.8 GM/dL (10.7-15.3); MCH 31.8 pg (25.7-33.7); MCHC 33.6 g/dl (32.0-36.0); MEAN CELL VOLUME 94.8 fl (80-96); MEAN PLT VOLUME 8.2 fl (7.5-11.1); PLATELET COUNT 188 K/MM3 (134-434); RBC 4.01 M/mm3 (3.60-5.2); RDW 13.5 % (11.6-15.6); WHITE BLOOD COUNT 5.3 K/mm3 (4.0-10.0)
[2017-05-18 09:18] LABS: ALBUMIN 3.3 g/dl (3.4-5.0); ALK PHOS 78 U/L (45-117); ANION GAP 6 (8-16); BILIRUBIN,TOTAL 0.4 mg/dL (0.2-1.0); BLOOD UREA NITROGEN 20 mg/dL (7-18); CALCIUM 9.4 mg/dL (8.5-10.1); CHLORIDE 108 mmol/L (98-107); CO2 28 mmol/L (21-32); CREATININE 0.8 mg/dL (0.55-1.02); GLUCOSE,RANDOM 89 mg/dL (74-106); POTASSIUM 3.9 mmol/L (3.5-5.1); SGOT/AST 22 U/L (15-37); SGPT/ALT 30 U/L (12-78); SODIUM 142 mmol/L (136-145)
[2017-05-18] MEDS: HEPARIN NA (PORCINE) 5,000 UNITS/ML 1ML VIAL SQ SCH (11:36)
[2017-05-18] MEDS: PANTOPRAZOLE 40 MG TABLET (FP) PO SCH (11:37)
[2017-05-18] MEDS: BACLOFEN 10 MG TABLET (FP) PO SCH (11:37)
[2017-05-18] MEDS: ISOSORBIDE MONONITRATE 30 MG TAB.SR.24H (FP) PO SCH (11:37)
[2017-05-18 12:59] VITALS: BP 146/76; PULSE 88; TEMP 98.4
[2017-05-18] MEDS ORDERED: PT OWN MED DRAWER 7, Y5N ONE (13:38)
--- NOTE | 2017-05-18 14:25 | PN ---
Teaching Attending Note Name of Resident: Donya Sheehan ATTENDING PHYSICIAN STATEMENT I saw and evaluated the patient. I reviewed the resident's note and discussed the case with the resident. I agree with the resident's findings and plan as documented. SUBJECTIVE:pain improved with flexeril. denies CP, SOB, fever, chills, N/V/C/D OBJECTIVE: Last Vital Signs Temp Pulse Resp BP Pulse Ox 98.4 F 88 18 146/76 98 05/18/17 10:00 05/18/17 10:00 05/18/17 10:00 05/18/17 10:00 05/18/17 09:00 General NAD ASSESSMENT AND PLAN: 71 yo F with MS (since 1970s, with some left arm symptoms), HTN, ?brain aneursym , here with recurrent falls. 1. Mechanical fall- reports multiple falls due to generalized weakness. pain controlled on management at this time. cont flexeril BID and tylenol prn. would benefit from [facility]. 2. L shoulder pain- ?posterior dislocation of L humeral head. no dislocation per ortho. cont PT 3. Rhabdo- resolved. 4. hypophospahatemia- neutraphos 5. Hypokalemia-resolved 6. Hypernatremia-resolved 7. Brain aneurysm 8. HTN- uncontrolled. increase imdur to 90mg. titrate meds to optimize control. 9. DVT ppx- DVT ppx- hep sq 10. d/c to [facility]
--- NOTE | 2017-05-18 23:18 | DS ---
Physical Exam: SUBJECTIVE: Patient seen and examined. No overnight events. Less joint pain this morning. No fever, chills, chest pain, abdominal pain, or sob. OBJECTIVE: Vital Signs Period Temp Pulse Resp BP Sys/Mcnulty Pulse Ox Last 24 Hr 98.4 F-98.6 F 84-88 18-20 146-187/76-86 98 PHYSICAL EXAM GENERAL: lying in bed, aaox3, nad HEENT: sclera anicteric, conjunctiva clear, MMM LUNGS: CTAB HEART: rrr, normal s1/s2, 3/6 ISRAEL ABDOMEN: soft, NTND, + bowel sounds, no guarding or rebound LOWER EXTREMITIES: 2+ DP pulses, wwp, no edema NEUROLOGICAL: Cranial nerves II through XII grossly intact. Normal speech, gait not observed. LABS CBC, BMP 05/18/17 07:18 05/18/17 07:18 Hepatic Panel Total Bilirubin 0.4 mg/dL (0.2-1.0) D 05/18/17 07:18 AST 22 U/L (15-37) 05/18/17 07:18 ALT 30 U/L (12-78) 05/18/17 07:18 Alkaline Phosphatase 78 U/L (45-117) 05/18/17 07:18 Albumin 3.3 g/dl (3.4-5.0) L 05/18/17 07:18 Microbiology 05/15/17 05:14 Urine - Urine Clean Catch Urine Culture - Final Contaminated: Please Repeat 05/15/17 08:15 Nasopharyngeal Swab Influenza Types A,B Antigen (GALINA) - NEG 05/15/17 08:15 Nasopharyngeal Swab - Final HOSPITAL COURSE: Date of Admission:05/15/17 Date of Discharge: 05/18/17 Pre-Admission Course: 71yo F with PMH of MS, stable cerebral AVM, and HTN who presents to ED after falling twice at home; first time landed on her knees, second time she rolled out of bed onto her knees. She reports staying on the floor until help arrived. Endorses right groin pain and left knee pain. She has chronic low back pain with no recent changes. Endorses some chills at home, but no fevers, respiratory symptoms, abdominal or urinary concerns. She received flu shot this year. Denies sick contacts. ER course was notable for: (1) Pelvic CT taken - no acute injuries (3) Head CT taken - no acute injuries (4) Hypokalemia - repleted with 80mEq (5) Hypomagnesemia - repleted with Mg 2gm IV Subsequent Hospital Course: #s/p mechanical fall -Pelvic and head CT (see Imaging results below): no acute pathology, non- concerning -L should XRAY could not exclude possible posterior dislocation. Orthopedics was consulted, and ruled out any dislocation or trauma. Orthopedics recommended physical therapy for treatment. #HTN -Patient's HTN was not well controlled. Her home Imdur dose was increase from 60mg daily to 90mg daily. No further changes to her home regimen were done. #chronic back pain/muscle spasms -Patient reported taking Baclofen 10mg PO BID for her chronic muscle spasms. She was started at this dose, and reported improved back pain control. Tylenol 975mg PO TID was also given for her chronic pain. #Troponinemia -The patient was found to have slight eleveation of Troponin (0.05), which is likely from demand ischemia due to hydration. There is low suspicion for ACS: the patient denied chest pain or chest discomfort through her stay, troponin trended flat, and 12-lead EKG had no signs of ischemia (NSR, rate 84). CONSULTS: Dr. Clarke IMAGING: EXAM#: TYPE/EXAM: RESULT: [id number] RAD/CHEST X-RAY PORTABLE* AP portable chest: Slipped at home. Weakness. Pain. A single view the chest reveals degenerative changes with no sign of a gross fracture. There is a sclerotic knob, clear lungs, sharp angles, normal caridad and large heart. An acute process is not seen. If symptoms persist, further imaging may be of help. Impression : No acute pathology. Large heart. Reported By: Ramon Munoz MD 05/15/17 [id number] EXAM#: TYPE/EXAM: RESULT: [id number] CT/HEAD CT WITHOUT CONTRAST TECHNIQUE: Sequential axial images were obtained from the base of the skull to the vertex. There is no evidence of acute intracranial hemorrhage, mass lesions or infarctions. There is a mild degree of diffuse cerebral atrophy with sulcal widening and ventricular dilatation. Hypodense changes are noted within the periventricular white matter consistent with chronic, small vessel ischemia. There is a large mucus retention cyst within the right maxillary sinus. IMPRESSION: No evidence of acute intracranial pathology. EXAM#: TYPE/EXAM: RESULT: [id number] CT/PELVIS CT WITHOUT CONTRAST History provided: Fall. Sequential axial images were obtained from the iliac crest to the symphysis pubis. Coronal and sagittal reconstructed images were also performed. There is no evidence of fracture, dislocation or acute bony abnormalities. Moderately severe degenerative arthritic changes are noted about the left hip joint with the joint space maintained. The patient is S/P total right hip replacement. There is no evidence of pelvic masses, fluid collections or significant lymphadenopathy. IMPRESSION: No evidence of pelvic fracture or acute bony pathology. Please see above discussion. EXAM#: TYPE/EXAM: RESULT: [id number] RAD/CHEST - PA Imaging reveals a large heart, sclerotic knob and some atelectatic changes at the bases. There is no sign of infiltrate or failure. The bones and soft tissues are intact. Correlation recommended. EXAM#: TYPE/EXAM: RESULT: [id number] RAD/SHOULDER-LEFT Left shoulder: Fall. Pain. Imaging reveals degenerative changes with possible old trauma involving the acromium and humeral head. The head is slightly displaced inferiorly. There is a sclerotic knob. The ribs appear intact. There is no sign of a pneumothorax. Correlation recommended. Symptoms persist or there is decreased range of motion then further imaging with CT and orthopedic consultation is suggested. EXAM#: TYPE/EXAM: RESULT: [id number] RAD/KNEE 2 POS-LEFT Left knee: Pain. Fall. AP and lateral views reveal no sign of fracture or subluxation and no sign of blastic or lytic changes. There is no sign of swelling, foreign body or soft tissue air. If symptoms persist, further imaging may be of help. Impression: No acute pathology. Minutes to complete discharge: 40 Discharge Summary Reason For Visit: RHABDOMYOLYSIS, Condition: Stable - Instructions Diet, Activity, Other Instructions: You were admitted to the hospital after falling twice. Imaging was done of your body and found no acute injuries. You were also seen by an Orthopedist who recommended physical therapy as treatment. You are being transferred to a rehab facility to help build your strength. Please follow their recommendations. Recommendations: -Follow a low salt and low carbohydrate diet. -Continue daily physical therapy as directed by physical therapist. Medications: Continue taking your regular home medications with the following changes: -Your Imdur was increased to 90mg daily. -You can take Tylenol 975mg three times per day for pain. Do not take more than 4000mg total in one day. Follow-ups: -Make an appointment to see your primary medical doctor, Dr. Archer, 1 week after discharge from rehab. Discuss with Dr. Mariscal or your commander police [employer] whether they want to readjust your blood pressure medications. Please return to the Emergency Department if you have fever, chill, chest pain, or any new or concerning symptoms. Referrals: Ld Mariscal [Primary Care Provider] - Disposition: RESIDENTIAL FACILITY - Home Medications Comprehensive Discharge Medication List: Ambulatory Orders Amlodipine Besylate [Norvasc -] 10 mg PO HS 05/15/17 Atorvastatin Ca [Lipitor] 10 mg PO HS 05/15/17 Baclofen 10 mg PO BID 05/15/17 Betaseron 0.3 mg SQ Q2D 05/15/17 Desloratadine/Pseudoephedrine [Clarinex-D 12 Hour Tablet] 5 mg PO BID PRN Furosemide [Lasix] 20 mg PO DAILY 05/15/17 Latanoprost 0.005% Eye Drops [Xalatan 0.005% Eye Drops -] 1 drop OD HS 05/15/17 Metoprolol Succinate [Toprol Xl] 150 mg PO DAILY 05/15/17 Montelukast Sodium [Singulair] 10 mg PO HS 05/15/17 Nexium 24Hr 40 mg PO DAILY 05/15/17 Acetaminophen 975 mg PO TID #270 tablet MDD 4000mg 05/18/17 Isosorbide Mononitrate [Imdur -] 90 mg PO DAILY #90 tab.sr.24h 05/18/17 This patient is new to me today: No Emergency Visit: No Critical Care patient: No - Discharge Referral Referred to [facility] No
== END 2017-05-18 13:55 | DRG 558 ==
LOC: JER 22:32 → JERBED 05-15 04:00 → J8W 05-15 05:47
PROVIDERS: ADMIT Internal Medicine; ATTEND Internal Medicine
DX: M62.82 Rhabdomyolysis (principal); I24.8 Other forms of acute ischemic heart disease; E87.0 Hyperosmolality and hypernatremia; E87.6 Hypokalemia; I10 Essential (primary) hypertension; G35 Multiple sclerosis; K21.9 Gastro-esophageal reflux disease without esophagitis; E86.0 Dehydration; M25.562 Pain in left knee; M25.512 Pain in left shoulder; E83.39 Other disorders of phosphorus metabolism; M54.9 Dorsalgia, unspecified; I67.1 Cerebral aneurysm, nonruptured; M62.830 Muscle spasm of back; W06.XXXA Fall from bed, initial encounter; Y92.092 Bedroom in other non-institutional residence as the place of occurrence of the external cause; J34.1 Cyst and mucocele of nose and nasal sinus; M25.552 Pain in left hip; M25.551 Pain in right hip; Z87.891 Personal history of nicotine dependence; Z88.0 Allergy status to penicillin
CPT/HCPCS: 36415; 70450-TC; 71045-TC-FY; 72192-TC; 73030-TC-LT-FY; 73560-TC-LT-FY; 80048; 80053; 81003; 81015; 82550; 82553; 83735; 84100; 84484; 85025; 85027; 85610; 87086; 87804; 93005; 93010; 97116-GP; 97161-GP; 99284-25; J0131; J0475; J1644

== ENCOUNTER 2018-02-09 13:08 | Emergency (ER) | payer OTHER, MEDICARE ==
[2018-02-09 13:30] VITALS: BP 121/57; PULSE 72; TEMP 98.2; BMI 24.0
[2018-02-09] MEDS ORDERED: DIPHTH,PERTUSS(ACELL),TET 0.5 ML DISP.SYRIN IM ONE ×2 (14:15→14:17)
--- NOTE | 2018-02-09 14:23 | PDOC ---
History of Present Illness - General Chief Complaint: Injury Stated Complaint: INJURY Time Seen by Provider: 02/09/18 13:39 History Source: Patient Exam Limitations: Clinical Condition - History of Present Illness Initial Comments: 02/09/18 14:16 Patient with no significant past medical history present with complaint of slip and fall while putting on shoes hitting head on glass Center table causing a laceration to left eyebrow and forehead. Patient does not recall last tetanus vaccine. Patient denies dizziness, blurry vision, change in vision or headache. Timing/Duration: 1 hour Past History - Past Medical History Allergies/Adverse Reactions: Allergies Allergy/AdvReac Type Severity Reaction Status Date / Time codeine Allergy Verified 02/09/18 13:19 doxycycline [From Vibramycin] Allergy Verified 02/09/18 13:19 hydrocodone [From Vicodin] Allergy Verified 02/09/18 13:19 Penicillins Allergy Verified 02/09/18 13:19 Home Medications: Ambulatory Orders Amlodipine Besylate [Norvasc -] 10 mg PO HS 05/15/17 Atorvastatin Ca [Lipitor] 10 mg PO HS 05/15/17 Baclofen 10 mg PO BID 05/15/17 Betaseron 0.3 mg SQ Q2D 05/15/17 Desloratadine/Pseudoephedrine [Clarinex-D 12 Hour Tablet] 5 mg PO BID PRN Furosemide [Lasix] 20 mg PO DAILY 05/15/17 Latanoprost 0.005% Eye Drops [Xalatan 0.005% Eye Drops -] 1 drop OD HS 05/15/17 Metoprolol Succinate [Toprol Xl] 150 mg PO DAILY 05/15/17 Montelukast Sodium [Singulair] 10 mg PO HS 05/15/17 Nexium 24Hr 40 mg PO DAILY 05/15/17 Acetaminophen 975 mg PO TID #270 tablet MDD 4000mg 05/18/17 Isosorbide Mononitrate [Imdur -] 90 mg PO DAILY #90 tab.sr.24h 05/18/17 Nitrofurantoin Macrocrystal [Macrodantin -] 50 mg PO Q6H 4 Days #16 capsule Mupirocin Ointment [Bactroban 2% Ointment -] 1 applic TP BID #1 tube 02/09/18 Sulfamethoxazole/Trimethoprim [Bactrim Ds -] 1 tab PO BID 5 Days #10 tablet COPD: No HTN: Yes Hypercholesterolemia: Yes - Surgical History Orthopedic Surgery: Yes (right hip replacement 2005) - Immunization History Immunization Up to Date: Yes - Suicide/Smoking/Psychosocial Hx Smoking History: Former smoker Have you smoked in the past 12 months: No Information on smoking cessation initiated: No Hx Alcohol Use: No Drug/Substance Use Hx: No Substance Use Type: None Review of Systems - Review of Systems Able to Perform ROS?: Yes Is the patient limited [place] proficient: No Constitutional: No: Weakness HEENTM: No: Eye Pain, Blurred Vision, Recent change in vision, Double Vision Respiratory: No: Symptoms reported Cardiac (ROS): No: Symptoms Reported ABD/GI: No: Symptoms Reported, Nausea, Vomiting Musculoskeletal: No: Muscle Pain Integumentary: Yes: Other (laceration to left eye brow and forehead) Neurological: No: Headache, Weakness, Dizziness All Other Systems: Reviewed and Negative *Physical Exam - Vital Signs Last Vital Signs Temp Pulse Resp BP Pulse Ox 98.2 F 72 16 121/57 L 98 02/09/18 13:19 02/09/18 13:19 02/09/18 13:19 02/09/18 13:19 02/09/18 13:19 - Physical Exam Comments: 02/09/18 14:19 GENERAL: Well developed, well nourished. Awake and alert. No acute distress. HEENT: Normocephalic, atraumatic. PERRLA, EOMI. No conjunctival pallor. Sclera are non- icteric. Moist mucous membranes. Oropharynx is clear. NECK: Supple. Full ROM. No JVD. Carotid pulses 2+ and symmetric, without bruits. No thyromegaly. No lymphadenopathy. CARDIOVASCULAR: Regular rate and rhythm. No murmurs, rubs, or gallops. Distal pulses are 2+ and symmetric. PULMONARY: No evidence of respiratory distress. Lungs clear to auscultation bilaterally. No wheezing, rales or rhonchi. ABDOMINAL: Soft. Non-tender. Non-distended. No rebound or guarding. No organomegaly. Normoactive bowel sounds. MUSCULOSKELETAL Normal range of motion at all joints. No bony deformities or tenderness. No CVA tenderness. EXTREMITIES: No cyanosis. No clubbing. No edema. No calf tenderness. SKIN: 3cm V-shaped laceration to left forehead with minimal bleeding. another L -shaped laceration to left eyebrow with minimal bleeding Warm and dry. Normal capillary refill. No rashes. No jaundice. NEUROLOGICAL: Alert, awake, appropriate. Cranial nerves 2-12 grossly intact. No motor deficits in the in face, upper extremities and lower extremities. Normal speech. . PSYCHIATRIC: Cooperative. Good eye contact. Appropriate mood and affect. General Appearance: Yes: Nourished, Appropriately Dressed. No: Apparent Distress Moderate Sedation - Procedure Monitoring Vital Signs: Procedure Monitoring Vital Signs Temperature 98.2 F 02/09/18 13:19 Pulse Rate 72 02/09/18 13:19 Respiratory Rate 16 02/09/18 13:19 Blood Pressure 121/57 L 02/09/18 13:19 O2 Sat by Pulse Oximetry (%) 98 02/09/18 13:19 Procedures - Laceration/Wound Repair Left Anterior Face Wound Length: 2.6 to 5.0 cm (3cm V-shaped laceration to LT forehead) Wound Explored: clean, no foreign body present Wound's Depth, Shape: superficial, stellate Irrigated w/ Saline: Yes Betadine Prep: Yes Amount of Anesthetic (ccs): 0 Wound Repaired With: Steri-strips, Dermabond Layer Closure: No Sterile Dressing Applied: Yes Splint Applied: No Sling Applied: No Left Lateral Eye Wound Length: 2.6 to 5.0 cm (3cm L-shaped laceration to LT eyebrow) Wound Explored: clean, no foreign body present Wound's Depth, Shape: into muscle, stellate Irrigated w/ Saline: Yes Betadine Prep: Yes Amount of Anesthetic (ccs): 0 Wound Repaired With: Steri-strips, Dermabond Layer Closure: No Sterile Dressing Applied: Yes Splint Applied: No Sling Applied: No Progress: 02/09/18 14:26 3 cm V-shaped laceration to left forehead cleaned with Betadine and closed with Dermabond with good approximation. Another L-shaped 3 cm to left eyebrow also cleaned with Betadine and closed with Dermabond to close approximation. Steri- Strips applied to both wound. Bleeding to both wound stopped. Tetanus vaccine ordered. Patient tolerated procedure well ED Treatment Course - RADIOLOGY Radiology Studies Ordered: Category Date Time Status HEAD CT WITHOUT CONTRAST [CT] Stat CT Scan 02/09/18 14:15 Ordered Medical Decision Making - Medical Decision Making 02/09/18 14:21 Patient with no significant past medication history and not on anticoagulation present with complaint of laceration to left eyebrow and left forehead status post slip and fall. Patient with no loss of consciousness or dizziness. Exam significant for 3 cm V-shaped laceration to left forehead. Another 3 laceration of L-shaped to left eyebrow both with minimal bleeding. Extraocular muscle intact. Pupils reflected to light bilateral. No neuro deficit on exam. Laceration to left forehead and eyebrow cleaned with Betadine and closed with Dermabond. Tetanus vaccine ordered. CAT scan of head without contrast ordered to rule out any intracranial bleeding. 02/09/18 16:[address] shows no acute intracranial bleeding. Pt stable for discharge on Bactrim Abx for infection prophylaxis *DC/Admit/Observation/Transfer Diagnosis at time of Disposition: Laceration of left eyebrow without complication Qualifiers: Encounter type: initial encounter Qualified Code(s): S01.112A - Laceration without foreign body of left eyelid and periocular area, initial encounter Laceration of forehead without complication Qualifiers: Encounter type: initial encounter Qualified Code(s): S01.81XA - Laceration without foreign body of other part of head, initial encounter - Discharge Dispostion Disposition: HOME Condition at time of disposition: Stable Decision to Admit order: No - Prescriptions Prescriptions: Mupirocin Ointment [Bactroban 2% Ointment -] 1 applic TP BID #1 tube Sulfamethoxazole/Trimethoprim [Bactrim Ds -] 1 tab PO BID 5 Days #10 tablet - Referrals Referrals: Ld Mariscal [Primary Care Provider] - - Patient Instructions Printed Discharge Instructions: DI for Closed Head Injury Additional Instructions: Take medications as prescribed. apply cold compress to wound 2-3 times for 5 mins today, switch to warm compress tomorrow as needed. Come back to ER if dizziness, blurry vision, severe headaches with vomiting - Post Discharge Activity
== END 2018-02-09 16:21 | disposition home or self-care (01) ==
LOC: JERFT 13:08 → JER 13:08 → JERFT 16:21
PROC: 0HQ1XZZ Repair Face Skin, External Approach (ICD-10-PCS; principal; 2018-02-09)
DX: S01.81XA Laceration without foreign body of other part of head, initial encounter (principal); S01.112A Laceration without foreign body of left eyelid and periocular area, initial encounter; W01.110A Fall on same level from slipping, tripping and stumbling with subsequent striking against sharp glass, initial encounter; Y93.89 Activity, other specified; Y92.89 Other specified places as the place of occurrence of the external cause; I10 Essential (primary) hypertension; E78.00 Pure hypercholesterolemia, unspecified
CPT/HCPCS: 12015; 70450-TC; 90715; 99281-25

== ENCOUNTER 2021-06-28 02:21 | Inpatient (IN) | payer BC, MEDICARE, OTHER ==
[2021-06-28] MEDS ORDERED: ACETAMINOPHEN 1000 MG/100 ML BAG IVPB ONE (03:14)
[2021-06-28] MEDS ORDERED: ACETAMINOPHEN INJECTION 100 ML IVPB ONE (03:49)
[2021-06-28 04:07] LABS: BASO % 0.5 % (0-2.0); EOS % 0.5 % (0-4.5); HEMATOCRIT 42.5 % (32.4-45.2); HEMOGLOBIN 14.6 GM/dL (10.7-15.3); LYMPH % 9.1 % (8-40); MCH 31.5 pg (25.7-33.7); MCHC 34.4 g/dl (32.0-36.0); MEAN CELL VOLUME 91.6 fl (80-96); MEAN PLT VOLUME 7.2 fl (7.5-11.1); MONO % 3.9 % (3.8-10.2); PLATELET COUNT 250 10^3/uL (134-434); RBC 4.64 M/mm3 (3.60-5.2); WHITE BLOOD COUNT 10.7 K/mm3 (4.0-10.0)
[2021-06-28 04:28] LABS: CALCIUM 10.2 mg/dL (8.5-10.1)
[2021-06-28 04:29] LABS: ALBUMIN 3.9 g/dl (3.4-5.0); BLOOD UREA NITROGEN 20.8 mg/dL (7-18)
[2021-06-28 04:34] LABS: BILIRUBIN,TOTAL 0.7 mg/dL (0.2-1); TOT PROT 7.7 g/dl (6.4-8.2)
[2021-06-28 06:46] LABS: EPI CELLS 12 /uL (0-25.1); HYALINE CASTS 2 /uL (0-3.1); PH,URINE 5.5 (5.0-8.0); URINE APPEARANCE CLEAR; URINE BACTERIA 10 /uL (0-1359); URINE BILIRUBIN NEGATIVE (NEGATIVE); URINE COLOR YELLOW; URINE GLUCOSE (UA) NEGATIVE (NEGATIVE); URINE KETONE 1+ (NEGATIVE); URINE LEUK ESTERASE NEGATIVE (NEGATIVE); URINE NITRITE NEGATIVE (NEGATIVE); URINE PROTEIN 4+ (NEGATIVE); URINE RBC 15 /uL (0-23.9); URINE UROBILINOGEN 0.2 mg/dL (0.2-1.0); URINE WBC 12 /uL (0-25.8)
[2021-06-28] MEDS ORDERED: FUROSEMIDE 20 MG TABLET (FP) ONE (09:14)
[2021-06-28] MEDS ORDERED: LISINOPRIL 5 MG TABLET ONE (09:14)
[2021-06-28] MEDS ORDERED: ACETAMINOPHEN 325 MG TABLET (FP) ONE (09:14)
[2021-06-28] MEDS: METOPROLOL SUCCINATE 100 MG, METOPROLOL SUCCINATE 50 MG PO SCH (09:22)
[2021-06-28] MEDS: LISINOPRIL 5 MG TABLET PO SCH (09:22)
[2021-06-28] MEDS: FUROSEMIDE 20 MG TABLET (FP) PO SCH (09:22)
[2021-06-28] MEDS: ACETAMINOPHEN 325 MG TABLET (FP) PO PRN (09:22)
[2021-06-28 15:37] VITALS: BMI 21.4
[2021-06-29 07:57] LABS: CALCIUM 8.7 mg/dL (8.5-10.1)
[2021-06-29 07:58] LABS: BLOOD UREA NITROGEN 25.6 mg/dL (7-18)
[2021-06-29 08:01] LABS: CREATININE 1.3 mg/dL (0.55-1.3)
[2021-06-29] MEDS: FUROSEMIDE 20 MG TABLET (FP) PO SCH (10:51)
[2021-06-29] MEDS: LISINOPRIL 5 MG TABLET PO SCH (10:51)
[2021-06-29] MEDS: METOPROLOL SUCCINATE 100 MG, METOPROLOL SUCCINATE 50 MG PO SCH (10:52)
[2021-06-29] MEDS ORDERED: POLYETHYLENE GLYCOL (HEALTHYLAX) 3350 17 GM PACKET PO SCH (13:45)
[2021-06-29] MEDS: ACETAMINOPHEN 325 MG TABLET (FP) PO PRN (19:43)
[2021-06-29] MEDS ORDERED: FAMOTIDINE 10 MG TABLET PO ONE (20:33)
[2021-06-29] MEDS: BACLOFEN 10 MG TABLET (FP) PO SCH (21:24)
[2021-06-29] MEDS ORDERED: ATORVASTATIN CA 20 MG TABLET (FP) PO SCH (22:00)
[2021-06-29] MEDS ORDERED: LATANOPROST 0.005% OPHTH SOLN 2.5ML BOTTLE OD SCH (22:00)
[2021-06-30 08:00] LABS: BASO % 0.5 % (0-2.0); EOS % 1.2 % (0-4.5); HEMATOCRIT 36.5 % (32.4-45.2); LYMPH % 22.5 % (8-40); MCH 30.8 pg (25.7-33.7); MEAN CELL VOLUME 93.3 fl (80-96); MEAN PLT VOLUME 8.1 fl (7.5-11.1); MONO % 8.2 % (3.8-10.2); NEUT % 67.6 % (42.8-82.8); PLATELET COUNT 216 10^3/uL (134-434); RBC 3.91 M/mm3 (3.60-5.2); RDW 14.2 % (11.6-15.6); WHITE BLOOD COUNT 6.5 K/mm3 (4.0-10.0)
[2021-06-30] MEDS ORDERED: ALBUTEROL SO4 0.083% IH SOL 2.5 MG/3 ML VIAL.NEB. NEB ONE (08:03)
[2021-06-30 08:40] LABS: CALCIUM 8.9 mg/dL (8.5-10.1)
[2021-06-30 08:41] LABS: BLOOD UREA NITROGEN 27.4 mg/dL (7-18); MAGNESIUM 1.9 mg/dL (1.8-2.4)
[2021-06-30 08:44] LABS: CREATININE 1.2 mg/dL (0.55-1.3); PHOSPHOROUS 2.5 mg/dL (2.5-4.9)
[2021-06-30 08:45] LABS: BILIRUBIN,TOTAL 0.5 mg/dL (0.2-1)
[2021-06-30 08:47] LABS: ALBUMIN 2.8 g/dl (3.4-5.0)
[2021-06-30] MEDS: METOPROLOL SUCCINATE 100 MG, METOPROLOL SUCCINATE 50 MG PO SCH (09:43)
[2021-06-30] MEDS: BACLOFEN 10 MG TABLET (FP) PO SCH ×2 (09:43→21:05)
[2021-06-30] MEDS: FUROSEMIDE 20 MG TABLET (FP) PO SCH (09:43)
[2021-06-30] MEDS: ACETAMINOPHEN 325 MG TABLET (FP) PO PRN (09:48)
[2021-06-30] MEDS: POLYETHYLENE GLYCOL (HEALTHYLAX) 3350 17 GM PACKET PO SCH ×3 (09:48→21:05)
[2021-06-30] MEDS: POTASSIUM CHLORIDE TABS 20 MEQ TABLET.ER (FP) PO ONE ×2 (09:50→14:54)
[2021-06-30] MEDS ORDERED: LISINOPRIL 5 MG TABLET PO SCH (10:00)
[2021-06-30] MEDS ORDERED: amLODIPine BESYLATE 10 MG TABLET (FP) PO SCH (10:00)
[2021-06-30] MEDS ORDERED: PANTOPRAZOLE 40 MG TABLET PO SCH (10:00)
[2021-06-30] MEDS ORDERED: DULoxetine HCL 30 MG CAPSULE.DR PO SCH (10:00)
[2021-06-30] MEDS ORDERED: ENOXAPARIN NA (PORCINE) 40 MG/0.4 ML DISP.SYRIN SQ SCH (10:00)
[2021-06-30] MEDS ORDERED: ISOSORBIDE MONONITRATE 60 MG TAB.SR.24H (FP) PO SCH (10:00)
[2021-06-30] MEDS ORDERED: ACETAMINOPHEN 325 MG TABLET (FP) PO PRN (15:11)
[2021-06-30] MEDS ORDERED: POTASSIUM CHLORIDE TABS 20 MEQ TABLET.ER (FP) PO ONE (15:15)
[2021-06-30] MEDS: ATORVASTATIN CA 20 MG TABLET (FP) PO SCH (21:05)
[2021-06-30] MEDS: hydrALAZINE HCL 50 MG TABLET (FP) PO SCH (21:05)
[2021-06-30] MEDS: LATANOPROST 0.005% OPHTH SOLN 2.5ML BOTTLE OD SCH (21:41)
[2021-06-30] MEDS ORDERED: hydrALAZINE HCL 50 MG TABLET (FP) PO SCH (22:00)
[2021-07-01] MEDS: POLYETHYLENE GLYCOL (HEALTHYLAX) 3350 17 GM PACKET PO SCH ×3 (05:42→21:20)
[2021-07-01] MEDS ORDERED: LABETALOL HCL 100 MG TABLET (FP) PO ONE (07:23)
[2021-07-01] MEDS: ISOSORBIDE MONONITRATE 60 MG TAB.SR.24H (FP) PO SCH (10:57)
[2021-07-01] MEDS: ENOXAPARIN NA (PORCINE) 40 MG/0.4 ML DISP.SYRIN SQ SCH (10:57)
[2021-07-01] MEDS: PANTOPRAZOLE 40 MG TABLET PO SCH (10:58)
[2021-07-01] MEDS: FUROSEMIDE 20 MG TABLET (FP) PO SCH (10:58)
[2021-07-01] MEDS: METOPROLOL SUCCINATE 100 MG, METOPROLOL SUCCINATE 50 MG PO SCH (10:58)
[2021-07-01] MEDS: DULoxetine HCL 30 MG CAPSULE.DR PO SCH (10:58)
[2021-07-01] MEDS: hydrALAZINE HCL 50 MG TABLET (FP) PO SCH ×2 (10:58→21:20)
[2021-07-01] MEDS: BACLOFEN 10 MG TABLET (FP) PO SCH ×2 (10:58→21:20)
[2021-07-01] MEDS: amLODIPine BESYLATE 10 MG TABLET (FP) PO SCH (10:58)
[2021-07-01 12:24] LABS: BLOOD UREA NITROGEN 21.6 mg/dL (7-18); CALCIUM 9.3 mg/dL (8.5-10.1); MAGNESIUM 1.8 mg/dL (1.8-2.4)
[2021-07-01 12:27] LABS: PHOSPHOROUS 3.3 mg/dL (2.5-4.9)
[2021-07-01 12:28] LABS: RBC 4.13 M/mm3 (3.60-5.2); WHITE BLOOD COUNT 7.5 K/mm3 (4.0-10.0)
[2021-07-01 12:29] LABS: BASO % 0.8 % (0-2.0); BILIRUBIN,TOTAL 0.4 mg/dL (0.2-1); EOS % 1.5 % (0-4.5); HEMATOCRIT 39.1 % (32.4-45.2); HEMOGLOBIN 12.8 GM/dL (10.7-15.3); MCHC 32.8 g/dl (32.0-36.0); MEAN CELL VOLUME 94.4 fl (80-96); MEAN PLT VOLUME 8.1 fl (7.5-11.1); MONO % 6.7 % (3.8-10.2); PLATELET COUNT 221 10^3/uL (134-434); RDW 14.1 % (11.6-15.6); TOT PROT 6.3 g/dl (6.4-8.2)
[2021-07-01] MEDS: LATANOPROST 0.005% OPHTH SOLN 2.5ML BOTTLE OD SCH (21:20)
[2021-07-01] MEDS: ATORVASTATIN CA 20 MG TABLET (FP) PO SCH (21:20)
[2021-07-02] MEDS: POLYETHYLENE GLYCOL (HEALTHYLAX) 3350 17 GM PACKET PO SCH ×3 (06:04→22:56)
[2021-07-02] MEDS: ENOXAPARIN NA (PORCINE) 40 MG/0.4 ML DISP.SYRIN SQ SCH (09:49)
[2021-07-02] MEDS: PANTOPRAZOLE 40 MG TABLET PO SCH (09:50)
[2021-07-02] MEDS: BACLOFEN 10 MG TABLET (FP) PO SCH ×2 (09:50→22:56)
[2021-07-02] MEDS: FUROSEMIDE 20 MG TABLET (FP) PO SCH (09:50)
[2021-07-02] MEDS: ISOSORBIDE MONONITRATE 60 MG TAB.SR.24H (FP) PO SCH (09:50)
[2021-07-02] MEDS: METOPROLOL SUCCINATE 100 MG, METOPROLOL SUCCINATE 50 MG PO SCH (09:50)
[2021-07-02] MEDS: DULoxetine HCL 30 MG CAPSULE.DR PO SCH (09:50)
[2021-07-02] MEDS: hydrALAZINE HCL 50 MG TABLET (FP) PO SCH ×2 (09:50→22:56)
[2021-07-02] MEDS: amLODIPine BESYLATE 10 MG TABLET (FP) PO SCH (09:50)
[2021-07-02 10:47] LABS: BASO % 0.5 % (0-2.0); EOS % 1.5 % (0-4.5); HEMATOCRIT 33.2 % (32.4-45.2); HEMOGLOBIN 11.2 GM/dL (10.7-15.3); LYMPH % 24.7 % (8-40); MCH 31.5 pg (25.7-33.7); MCHC 33.8 g/dl (32.0-36.0); MEAN PLT VOLUME 7.7 fl (7.5-11.1); MONO % 8.3 % (3.8-10.2); PLATELET COUNT 234 10^3/uL (134-434); RBC 3.57 M/mm3 (3.60-5.2); RDW 14.5 % (11.6-15.6); WHITE BLOOD COUNT 5.9 K/mm3 (4.0-10.0)
[2021-07-02 11:42] LABS: CALCIUM 9.3 mg/dL (8.5-10.1)
[2021-07-02 11:43] LABS: ALBUMIN 2.9 g/dl (3.4-5.0); BLOOD UREA NITROGEN 27.6 mg/dL (7-18)
[2021-07-02 11:46] LABS: CREATININE 1.2 mg/dL (0.55-1.3)
[2021-07-02 11:47] LABS: BILIRUBIN,TOTAL 0.9 mg/dL (0.2-1); TOT PROT 5.9 g/dl (6.4-8.2)
[2021-07-02] MEDS: ATORVASTATIN CA 20 MG TABLET (FP) PO SCH (22:56)
[2021-07-02] MEDS: LATANOPROST 0.005% OPHTH SOLN 2.5ML BOTTLE OD SCH (22:58)
[2021-07-03] MEDS: POLYETHYLENE GLYCOL (HEALTHYLAX) 3350 17 GM PACKET PO SCH ×2 (06:03→13:21)
[2021-07-03] MEDS: METOPROLOL SUCCINATE 100 MG, METOPROLOL SUCCINATE 50 MG PO SCH (09:49)
[2021-07-03] MEDS: BACLOFEN 10 MG TABLET (FP) PO SCH (09:49)
[2021-07-03] MEDS: ENOXAPARIN NA (PORCINE) 40 MG/0.4 ML DISP.SYRIN SQ SCH (09:49)
[2021-07-03] MEDS: DULoxetine HCL 30 MG CAPSULE.DR PO SCH (09:49)
[2021-07-03] MEDS: PANTOPRAZOLE 40 MG TABLET PO SCH (09:50)
[2021-07-03] MEDS: hydrALAZINE HCL 50 MG TABLET (FP) PO SCH (09:50)
[2021-07-03] MEDS: amLODIPine BESYLATE 10 MG TABLET (FP) PO SCH (09:50)
[2021-07-03] MEDS: ISOSORBIDE MONONITRATE 60 MG TAB.SR.24H (FP) PO SCH (09:50)
[2021-07-03] MEDS: FUROSEMIDE 20 MG TABLET (FP) PO SCH (09:50)
[2021-07-03 10:06] VITALS: TEMP 98.2
[2021-07-03 10:54] LABS: BASO % 0.5 % (0-2.0); EOS % 2.3 % (0-4.5); HEMATOCRIT 32.6 % (32.4-45.2); LYMPH % 30.3 % (8-40); MCH 31.4 pg (25.7-33.7); MCHC 33.6 g/dl (32.0-36.0); MEAN CELL VOLUME 93.3 fl (80-96); MEAN PLT VOLUME 7.6 fl (7.5-11.1); MONO % 9.1 % (3.8-10.2); NEUT % 57.8 % (42.8-82.8); PLATELET COUNT 229 10^3/uL (134-434); RDW 14.1 % (11.6-15.6); WHITE BLOOD COUNT 5.2 K/mm3 (4.0-10.0)
[2021-07-03 11:21] LABS: CALCIUM 9.2 mg/dL (8.5-10.1)
[2021-07-03 11:22] LABS: ALBUMIN 2.9 g/dl (3.4-5.0); BLOOD UREA NITROGEN 34.8 mg/dL (7-18)
[2021-07-03 11:24] LABS: CREATININE 1.2 mg/dL (0.55-1.3); PHOSPHOROUS 3.6 mg/dL (2.5-4.9)
[2021-07-03 18:18] VITALS: BP 105/57; PULSE 81
== END 2021-07-03 18:28 | DRG 312 ==
LOC: JER 02:21 → INTOOBSV 03:28 → UNDOADMOB 03:28 → JERBED 03:28 → J4W 15:27 → OBSVTOIN 06-30 13:22 → J5S 06-30 16:17
PROVIDERS: ADMIT Internal Medicine; ATTEND Internal Medicine
DX: R55 Syncope and collapse (principal); I10 Essential (primary) hypertension; E78.5 Hyperlipidemia, unspecified; M25.511 Pain in right shoulder; R91.8 Other nonspecific abnormal finding of lung field; E04.2 Nontoxic multinodular goiter; I16.0 Hypertensive urgency; R31.9 Hematuria, unspecified; G35 Multiple sclerosis; T78.3XXA Angioneurotic edema, initial encounter; T46.4X5A Adverse effect of angiotensin-converting-enzyme inhibitors, initial encounter; K63.9 Disease of intestine, unspecified
CPT/HCPCS: 36415; 70450-TC; 71045-TC-FY; 72125-TC; 72128-TC; 72170-TC-FY; 72192-TC; 73610-TC-LT-FY; 73630-TC-LT; 80048; 80053; 81003; 82962; 83735; 84100; 84439; 84443; 84484; 85025; 87086; 93005; 93010; 97116-GP; 97162-GP; 99285-25; C9803-CS; G0378; J0475; U0003; U0005

== ENCOUNTER 2023-09-21 21:34 | Inpatient (IN) | payer OTHER ==
[2023-09-21] MEDS: SODIUM CHLORIDE 0.9% 500 ML INFUS.BAG IV ONE (23:00)
[2023-09-22] MEDS ORDERED: ACETAMINOPHEN INJECTION 100 ML IVPB ONE ×2 (00:48→16:10)
[2023-09-22] MEDS: ACETAMINOPHEN 1000 MG/100 ML BAG IVPB ONE (00:52)
[2023-09-22] MEDS: SODIUM CHLORIDE 0.9% 500 ML INFUS.BAG IV ONE ×2 (00:52→08:45)
[2023-09-22 01:00] LABS: VENOUS BASE EXCESS -1.6 mmol/L (-2-2); VENOUS O2 SATURATION 41.7 % (70-80); VENOUS PCO2 39.9 mmHg (38-52); VENOUS PH 7.384 (7.310-7.410)
[2023-09-22 01:02] LABS: BASO % 0.4 % (0-2.0); HEMATOCRIT 34.2 % (32.4-45.2); HEMOGLOBIN 11.7 GM/dL (10.7-15.3); LYMPH % 5.5 % (8-40); MCH 32.3 pg (25.7-33.7); MCHC 34.3 g/dl (32.0-36.0); MEAN CELL VOLUME 94.1 fl (80-96); MEAN PLT VOLUME 8.5 fl (7.5-11.1); MONO % 5.3 % (3.8-10.2); NEUT % 88.8 % (42.8-82.8); PLATELET COUNT 150 10^3/uL (134-434); RBC 3.63 M/mm3 (3.60-5.2); WHITE BLOOD COUNT 7.1 K/mm3 (4.0-10.0)
[2023-09-22 01:21] LABS: POTASSIUM 4.3 mmol/L (3.5-5.1)
[2023-09-22 01:23] LABS: ALBUMIN 3.8 g/dl (3.4-5.0); CALCIUM 8.8 mg/dL (8.5-10.1)
[2023-09-22 01:26] LABS: CREATININE 1.8 mg/dL (0.55-1.3)
[2023-09-22 01:28] LABS: BILIRUBIN,TOTAL 0.7 mg/dL (0.2-1); TOT PROT 7.7 g/dl (6.4-8.2)
[2023-09-22 01:49] LABS: INR 1.03 (0.83-1.09); PROTHROMBIN TIME (PATIENT) 11.6 SEC (9.7-13.0)
[2023-09-22 01:52] LABS: ACTIVATED PTT 32.5 SECONDS (25.2-36.5)
[2023-09-22 07:30] LABS: BASO % 0.2 % (0-2.0); HEMATOCRIT 31.6 % (32.4-45.2); HEMOGLOBIN 10.6 GM/dL (10.7-15.3); LYMPH % 9.1 % (8-40); MCH 32.1 pg (25.7-33.7); MCHC 33.6 g/dl (32.0-36.0); MEAN CELL VOLUME 95.6 fl (80-96); MONO % 9.9 % (3.8-10.2); NEUT % 80.8 % (42.8-82.8); PLATELET COUNT 132 10^3/uL (134-434); RBC 3.31 M/mm3 (3.60-5.2)
[2023-09-22 07:46] LABS: POTASSIUM 3.6 mmol/L (3.5-5.1)
[2023-09-22 07:52] LABS: ALBUMIN 3.2 g/dl (3.4-5.0); CALCIUM 8.3 mg/dL (8.5-10.1)
[2023-09-22 07:53] LABS: BLOOD UREA NITROGEN 31.1 mg/dL (7-18)
[2023-09-22 07:55] LABS: CREATININE 1.5 mg/dL (0.55-1.3)
[2023-09-22 07:56] LABS: MAGNESIUM 1.8 mg/dL (1.8-2.4); PHOSPHOROUS 3.5 mg/dL (2.5-4.9)
[2023-09-22 07:57] LABS: BILIRUBIN,TOTAL 1.3 mg/dL (0.2-1); TOT PROT 6.4 g/dl (6.4-8.2)
[2023-09-22] MEDS ORDERED: REMDESIVIR 200 MG in SODIUM CHLORIDE 250 ML IVPB ONE (10:00)
[2023-09-22] MEDS ORDERED: PATIENT'S OWN MEDICATION (NON-FORMULARY) (Cyclosporine [Restasis] 1 EACH Droperette) OU SCH (10:00)
[2023-09-22] MEDS ORDERED: FAMOTIDINE 20 MG TABLET ONE (11:31)
[2023-09-22] MEDS ORDERED: amLODIPine BESYLATE 10 MG TABLET (FP) ONE (11:31)
[2023-09-22] MEDS ORDERED: MAGNESIUM OXIDE 400 MG TABLET (FP) ONE (11:31)
[2023-09-22] MEDS ORDERED: LIDOCAINE 5% TOPICAL PATCH ONE (12:06)
[2023-09-22] MEDS: MAGNESIUM OXIDE 400 MG TABLET (FP) PO ONE (12:20)
[2023-09-22] MEDS: amLODIPine BESYLATE 10 MG TABLET (FP) PO SCH (12:20)
[2023-09-22] MEDS: ISOSORBIDE MONONITRATE 30 MG TAB.SR.24H (FP) PO SCH (12:20)
[2023-09-22] MEDS: DULoxetine HCL 30 MG CAPSULE.DR PO SCH (12:20)
[2023-09-22] MEDS: FAMOTIDINE 20 MG TABLET PO SCH (12:20)
[2023-09-22] MEDS: LIDOCAINE 5% TOPICAL PATCH TP SCH (12:20)
[2023-09-22] MEDS ORDERED: HEPARIN NA (PORCINE) 5,000 UNITS/ML 1ML VIAL ONE ×2 (14:13→22:09)
[2023-09-22] MEDS: REMDESIVIR 200 MG in SODIUM CHLORIDE 250 ML IVPB ONE (14:20)
[2023-09-22] MEDS: HEPARIN NA (PORCINE) 5,000 UNITS/ML 1ML VIAL SQ SCH (14:25)
[2023-09-22] MEDS: ACETAMINOPHEN 1000 MG/100 ML BAG IVPB PRN (16:15)
[2023-09-22] MEDS ORDERED: ATORVASTATIN CA 20 MG TABLET (FP) ONE (22:09)
[2023-09-22] MEDS: LIDOCAINE PATCH REMOVAL MC SCH (22:23)
[2023-09-22] MEDS: ATORVASTATIN CA 20 MG TABLET (FP) PO SCH (22:24)
[2023-09-23] MEDS ORDERED: HEPARIN NA (PORCINE) 5,000 UNITS/ML 1ML VIAL ONE ×2 (05:25→14:44)
[2023-09-23 08:19] LABS: BASO % 0.5 % (0-2.0); HEMATOCRIT 31.5 % (32.4-45.2); HEMOGLOBIN 10.7 GM/dL (10.7-15.3); MCH 32.3 pg (25.7-33.7); MCHC 33.9 g/dl (32.0-36.0); MEAN CELL VOLUME 95.3 fl (80-96); MEAN PLT VOLUME 7.7 fl (7.5-11.1); MONO % 6.9 % (3.8-10.2); NEUT % 83.6 % (42.8-82.8); PLATELET COUNT 135 10^3/uL (134-434); RDW 13.1 % (11.6-15.6); WHITE BLOOD COUNT 4.8 K/mm3 (4.0-10.0)
[2023-09-23 08:31] LABS: POTASSIUM 4.1 mmol/L (3.5-5.1)
[2023-09-23 08:40] LABS: CALCIUM 8.7 mg/dL (8.5-10.1)
[2023-09-23 08:41] LABS: ALBUMIN 3.2 g/dl (3.4-5.0); BLOOD UREA NITROGEN 28.1 mg/dL (7-18); MAGNESIUM 1.8 mg/dL (1.8-2.4)
[2023-09-23 08:44] LABS: CREATININE 1.3 mg/dL (0.55-1.3)
[2023-09-23 08:45] LABS: TOT PROT 6.6 g/dl (6.4-8.2)
[2023-09-23 08:46] LABS: BILIRUBIN,TOTAL 1.4 mg/dL (0.2-1)
[2023-09-23] MEDS ORDERED: amLODIPine BESYLATE 10 MG TABLET (FP) ONE (11:01)
[2023-09-23] MEDS ORDERED: FAMOTIDINE 20 MG TABLET ONE (11:01)
[2023-09-23] MEDS ORDERED: MULTIVITAMINS (DAILY MVI) TABLET (FP) ONE (11:01)
[2023-09-23] MEDS ORDERED: MAGNESIUM SULFATE IN WATER 2 GM/50 ML IVPB IVPB ONE (11:02)
[2023-09-23] MEDS ORDERED: LIDOCAINE 5% TOPICAL PATCH ONE (11:02)
[2023-09-23] MEDS: MAGNESIUM SULFATE IN WATER 2 GM/50 ML IVPB IVPB ONE (11:03)
[2023-09-23] MEDS: MULTIVITAMINS (DAILY MVI) TABLET (FP) PO SCH (11:06)
[2023-09-23] MEDS: REMDESIVIR 100 MG in SODIUM CHLORIDE 250 ML IVPB SCH (13:59)
[2023-09-23 15:25] VITALS: BMI 16.0
[2023-09-24 09:12] LABS: BASO % 0.5 % (0-2.0); EOS % 0.2 % (0-4.5); HEMATOCRIT 29.5 % (32.4-45.2); HEMOGLOBIN 10.2 GM/dL (10.7-15.3); LYMPH % 24.9 % (8-40); MCH 32.8 pg (25.7-33.7); MCHC 34.7 g/dl (32.0-36.0); MEAN CELL VOLUME 94.6 fl (80-96); MEAN PLT VOLUME 8.2 fl (7.5-11.1); NEUT % 63.4 % (42.8-82.8); PLATELET COUNT 152 10^3/uL (134-434); RBC 3.11 M/mm3 (3.60-5.2); RDW 13.5 % (11.6-15.6); WHITE BLOOD COUNT 3.1 K/mm3 (4.0-10.0)
[2023-09-24 09:44] LABS: BLOOD UREA NITROGEN 35.3 mg/dL (7-18); CALCIUM 8.6 mg/dL (8.5-10.1); MAGNESIUM 2.6 mg/dL (1.8-2.4)
[2023-09-24 09:49] LABS: CREATININE 1.4 mg/dL (0.55-1.3)
[2023-09-24 09:50] LABS: BILIRUBIN,TOTAL 0.4 mg/dL (0.2-1)
[2023-09-24] MEDS: LATANOPROST 0.005% OPHTH SOLN 2.5ML BOTTLE OU SCH (18:31)
[2023-09-25 09:49] LABS: BASO % 0.6 % (0-2.0); EOS % 0.3 % (0-4.5); HEMATOCRIT 27.1 % (32.4-45.2); HEMOGLOBIN 9.3 GM/dL (10.7-15.3); LYMPH % 34.9 % (8-40); MCH 32.3 pg (25.7-33.7); MCHC 34.4 g/dl (32.0-36.0); MEAN PLT VOLUME 8.2 fl (7.5-11.1); MONO % 10.1 % (3.8-10.2); NEUT % 54.1 % (42.8-82.8); PLATELET COUNT 154 10^3/uL (134-434); RBC 2.88 M/mm3 (3.60-5.2); RDW 13.7 % (11.6-15.6); WHITE BLOOD COUNT 2.8 K/mm3 (4.0-10.0)
[2023-09-25 10:15] LABS: POTASSIUM 4.1 mmol/L (3.5-5.1)
[2023-09-25 10:27] LABS: TOT PROT 5.7 g/dl (6.4-8.2)
[2023-09-25 10:31] LABS: CALCIUM 8.1 mg/dL (8.5-10.1)
[2023-09-25 10:33] LABS: MAGNESIUM 2.4 mg/dL (1.8-2.4)
[2023-09-25 10:35] LABS: ALBUMIN 2.6 g/dl (3.4-5.0); CREATININE 1.4 mg/dL (0.55-1.3)
[2023-09-25 10:58] LABS: BILIRUBIN,TOTAL 0.4 mg/dL (0.2-1)
[2023-09-25] MEDS: ACETAMINOPHEN 325 MG TABLET (FP) PO PRN (12:30)
[2023-09-27 09:07] LABS: BASO % 0.5 % (0-2.0); EOS % 1.5 % (0-4.5); HEMATOCRIT 30.5 % (32.4-45.2); HEMOGLOBIN 10.4 GM/dL (10.7-15.3); LYMPH % 32.4 % (8-40); MCH 31.9 pg (25.7-33.7); MEAN CELL VOLUME 93.9 fl (80-96); MEAN PLT VOLUME 7.9 fl (7.5-11.1); MONO % 13.1 % (3.8-10.2); NEUT % 52.5 % (42.8-82.8); PLATELET COUNT 189 10^3/uL (134-434); RBC 3.25 M/mm3 (3.60-5.2); RDW 13.4 % (11.6-15.6)
[2023-09-27 09:59] LABS: POTASSIUM 4.2 mmol/L (3.5-5.1)
[2023-09-27 10:00] LABS: CALCIUM 8.8 mg/dL (8.5-10.1)
[2023-09-27 10:01] LABS: ALBUMIN 2.9 g/dl (3.4-5.0); MAGNESIUM 2.2 mg/dL (1.8-2.4)
[2023-09-27 10:04] LABS: CREATININE 1.2 mg/dL (0.55-1.3)
[2023-09-27 10:06] LABS: BILIRUBIN,TOTAL 0.6 mg/dL (0.2-1)
[2023-09-28 09:58] LABS: BASO % 0.5 % (0-2.0); HEMATOCRIT 28.6 % (32.4-45.2); HEMOGLOBIN 9.8 GM/dL (10.7-15.3); LYMPH % 22.2 % (8-40); MCH 32.3 pg (25.7-33.7); MCHC 34.2 g/dl (32.0-36.0); MEAN CELL VOLUME 94.5 fl (80-96); MEAN PLT VOLUME 7.4 fl (7.5-11.1); MONO % 10.4 % (3.8-10.2); NEUT % 64.9 % (42.8-82.8); PLATELET COUNT 221 10^3/uL (134-434); RBC 3.03 M/mm3 (3.60-5.2); RDW 13.2 % (11.6-15.6); WHITE BLOOD COUNT 3.3 K/mm3 (4.0-10.0)
[2023-09-28 10:31] LABS: BLOOD UREA NITROGEN 22.5 mg/dL (7-18); CALCIUM 9.1 mg/dL (8.5-10.1); MAGNESIUM 2.2 mg/dL (1.8-2.4)
[2023-09-28 10:32] LABS: ALBUMIN 2.8 g/dl (3.4-5.0)
[2023-09-28 10:35] LABS: BILIRUBIN,TOTAL 0.6 mg/dL (0.2-1); CREATININE 1.2 mg/dL (0.55-1.3)
[2023-09-28 10:36] LABS: TOT PROT 5.9 g/dl (6.4-8.2)
[2023-09-28 16:02] VITALS: RESP 18
[2023-09-29 10:09] LABS: BASO % 0.6 % (0-2.0); EOS % 2.6 % (0-4.5); HEMATOCRIT 29.7 % (32.4-45.2); LYMPH % 14.6 % (8-40); MCH 31.7 pg (25.7-33.7); MCHC 33.8 g/dl (32.0-36.0); MEAN CELL VOLUME 93.9 fl (80-96); MEAN PLT VOLUME 7.4 fl (7.5-11.1); MONO % 9.3 % (3.8-10.2); NEUT % 72.9 % (42.8-82.8); PLATELET COUNT 260 10^3/uL (134-434); RBC 3.16 M/mm3 (3.60-5.2); RDW 13.5 % (11.6-15.6); WHITE BLOOD COUNT 3.8 K/mm3 (4.0-10.0)
[2023-09-29 10:31] LABS: POTASSIUM 3.8 mmol/L (3.5-5.1)
[2023-09-29 10:35] LABS: BLOOD UREA NITROGEN 20.4 mg/dL (7-18); CALCIUM 8.9 mg/dL (8.5-10.1); MAGNESIUM 2.1 mg/dL (1.8-2.4)
[2023-09-29 10:38] LABS: CREATININE 1.2 mg/dL (0.55-1.3)
[2023-09-29] MEDS ORDERED: BACLOFEN 10 MG TABLET (FP) PO PRN (10:38)
[2023-09-29 10:40] LABS: BILIRUBIN,TOTAL 0.6 mg/dL (0.2-1)
[2023-09-29 10:45] LABS: TOT PROT 6.5 g/dl (6.4-8.2)
[2023-09-29 16:11] VITALS: BP 114/57; PULSE 85; TEMP 98.6
== END 2023-09-29 19:55 | DRG 177 ==
LOC: JER 21:34 → JERBED 09-22 00:24 → J8W 09-23 14:57
PROVIDERS: ADMIT Internal Medicine; ATTEND Nurse Practitioner Family
PROC: XW033E5 Introduction of Remdesivir Anti-infective into Peripheral Vein, Percutaneous Approach, New Technology Group 5 (ICD-10-PCS; principal; 2023-09-22)
DX: U07.1 COVID-19 (principal); E43 Unspecified severe protein-calorie malnutrition; I24.89 Other forms of acute ischemic heart disease; Z68.1 Body mass index [BMI] 19.9 or less, adult; Q27.30 Arteriovenous malformation, site unspecified; N17.9 Acute kidney failure, unspecified; I10 Essential (primary) hypertension; E78.5 Hyperlipidemia, unspecified; N39.498 Other specified urinary incontinence; R79.89 Other specified abnormal findings of blood chemistry; D69.6 Thrombocytopenia, unspecified; G35 Multiple sclerosis; R29.6 Repeated falls; W18.30XA Fall on same level, unspecified, initial encounter; Y92.099 Unspecified place in other non-institutional residence as the place of occurrence of the external cause; Y99.9 Unspecified external cause status
CPT/HCPCS: 0241U-QW; 36415; 70450-TC; 71045-TC-FY; 72125-TC; 72170-TC-FY; 72192-TC; 73030-TC-RT-FY; 73502-TC-LT-FY; 73502-TC-RT-FY; 73721-LT-TC; 80053; 82550; 82553; 82803; 82962; 83605; 83735; 84100; 84484; 85025; 85379; 85610; 85730; 86140; 86850; 86900; 86901; 87040; 87635; 93005; 93010; 93970-TC; 97116-GP; 97161-GP; 99285-25; J0131; J0248; J1644